=== PATIENT | male | born 1975 | race Two or more races ===

== ENCOUNTER 2024-08-21 10:57 | Emergency (ER) | payer MEDICAID, SELFPAY ==
--- NOTE | ~2024-08-21 | XR_ITS ---
EXAMINATION: XR CHEST CLINICAL INFORMATION: chest pain COMPARISON: None available. TECHNIQUE: Frontal view of the chest was obtained. FINDINGS: There is mild cardiac enlargement. Mediastinal and hilar contours appear normal. The lungs are clear bilaterally. No pneumothorax or effusion. No focal osseous or soft tissue abnormality. XR/XR chest 1V IMPRESSION: 1. Mild cardiac enlargement. 2. No active pulmonary disease. Electronically signed by: Jose Rojas MD 08/21/2024 11:41 AM EDT
--- NOTE | ~2024-08-21 | US_ITS ---
EXAMINATION: US TRIPLEX LOWER EXTREMITY, RIGHT CLINICAL INFORMATION: Right lower extremity edema and pain. COMPARISON: None available. TECHNIQUE: Color-flow triplex imaging with spectral analysis and compression Doppler were performed on the right lower extremity. FINDINGS: Respiratory variation, normal compression and augmented flow are noted throughout the right lower extremity. The visualized common femoral vein, superficial femoral vein, profunda femoral vein, popliteal vein and midcalf peroneal and posterior tibial venous segments show no evidence of deep venous thrombosis. There is no Marquez's cyst. US/US venous duplex LE RT IMPRESSION: No evidence of deep venous thrombosis involving the right lower extremity. Electronically signed by: Jose Rojas MD 08/21/2024 01:32 PM EDT
--- NOTE | 2024-08-21 10:59 | ECG_ITS ---
Test Reason : CP Blood Pressure : */* mmHG Vent. Rate : 99 BPM Atrial Rate : 99 BPM P-R Int : 176 ms QRS Dur : 106 ms QT Int : 396 ms P-R-T Axes : 53 35 224 degrees QTcB Int : 508 ms Normal sinus rhythm Possible Left atrial enlargement Left ventricular hypertrophy with repolarization abnormality ( Sokolow-Vazquez , [place] product , Romhilt-Jones ) Cannot rule out Inferior infarct , age undetermined Prolonged QT Abnormal ECG No previous ECGs available Referred By: Generic ED Physician Electronically Signed By: Umair Frank
[2024-08-21 11:11] VITALS: BP 177/114; PULSE 105; RESP 22; TEMP 36.4; O2SAT 96; BMI 36.0
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
[2024-08-21 12:40] LABS: MANUAL DIFF FLAG NO
[2024-08-21 12:42] LABS: Basophils Absolute Auto 0.1 X10*3/uL (0.0-0.2); Basophils Percent Auto 0.6 % (0-2); Eosinophils Absolute Auto 0.1 X10*3/uL (0.0-0.4); Eosinophils Percent Auto 1.2 % (0-4); Hematocrit 41.1 % (42.0-52.0); Imm Gran Abs Auto 0.04 X10*3/uL (0.00-0.03); Imm Gran Pct Auto 0.4 % (0.0-0.4); Lymphocytes Absolute Auto 1.3 X10*3/uL (1.2-4.9); Mean Corpuscular HGB Conc 34.1 g/dl (31.0-36.0); Mean Corpuscular Hemoglobin 26.5 pg (27.0-33.0); Mean Corpuscular Volume 77.7 fL (80.0-98.0); Monocytes Absolute Auto 0.7 X10*3/uL (0.1-1.2); Neutrophils Absolute Auto 7.8 x10*3/uL (2.0-8.3); Neutrophils Percent Auto 77.8 % (45-73); Platelet Count 279 X10*3/uL (160-400); Red Blood Count 5.29 X10*6/uL (4.60-5.80); Red Cell Distribution Width 15.6 % (11.0-16.0); White Blood Count 10.1 X10*3/uL (4.8-10.8)
[2024-08-21 12:47] LABS: INTERNATIONAL NORM RATIO 1.2 (0.9-1.1); Prothrombin Time 13.6 SEC (10.9-12.4)
[2024-08-21 12:49] LABS: D Dimer High Sensitivity 181 NG/ML
[2024-08-21 12:50] VITALS: BP 164/97
[2024-08-21 12:50] LABS: Partial Thromboplastin Time 27.8 SEC (26.0-36.8)
[2024-08-21] MEDS: Losartan Potassium 50 MG TABLET PO (12:50)
[2024-08-21] MEDS: Ketorolac Tromethamine 15 MG/ML VIAL IVPUSH (12:50)
[2024-08-21 12:57] LABS: Alanine Aminotransferase 57 U/L (0-40); Albumin Level 3.5 g/dL (3.5-5.0); Alkaline Phosphatase 66 U/L (39-117); Anion Gap 11 (12-20); Aspartate Amino Transferase 34 U/L (5-37); Bilirubin Total 0.6 mg/dL (0.0-1.0); Blood Urea Nitrogen 25 mg/dL (9-16); Calcium 8.7 mg/dL (8.4-10.2); Carbon Dioxide 25 mmol/L (22-29); Chloride 111 mmol/L (96-108); Creatinine Clr Calc Pharmacy 83.7; Estimated Glomerular Filt Rate 53; Glucose Random 123 mg/dL (60-115); Potassium 3.7 mmol/L (3.3-5.1); Sodium 143 mmol/L (135-145); Total Protein 5.7 g/dL (6.5-8.0)
[2024-08-21 13:02] LABS: B Type Natriuretic Peptide 1627 pg/mL (<100)
[2024-08-21 13:04] LABS: Troponin-I High Sensitivity 49.3 ng/L (<3.5-35.0)
[2024-08-21 13:42] LABS: Influenza A PCR NEGATIVE (Negative); Influenza B PCR NEGATIVE (Negative); Resp Syncy Virus RNA Qual PCR NEGATIVE (Negative); SARS COV2 PCR INHOUSE NEGATIVE (Negative)
[2024-08-21 14:09] VITALS: BP 160/87; PULSE 82; RESP 21; TEMP 36.6; O2SAT 97
[2024-08-21 16:26] LABS: Troponin-I High Sensitivity 44.3 ng/L (<3.5-35.0)
[2024-08-21 16:48] VITALS: PULSE 100; RESP 21
[2024-08-21 17:16] VITALS: BP 160/84; PULSE 100; RESP 21; TEMP 36.7; O2SAT 99
== END 2024-08-21 17:16 | disposition home or self-care (01) ==
PROVIDERS: Physician Assistant; Emergency Provider Emergency Medicine Emergency Medical Services
DX: R07.89 Other chest pain (principal); R60.0 Localized edema; F41.1 Generalized anxiety disorder; I10 Essential (primary) hypertension; I25.10 Atherosclerotic heart disease of native coronary artery without angina pectoris; Z03.818 Encounter for observation for suspected exposure to other biological agents ruled out; Z79.899 Other long term (current) drug therapy
CPT/HCPCS: 0241U; 36415; 71045; 80053; 83880; 84484; 85025; 85379; 85610; 85730; 93005; 93971; 96374; 99284; J1885

== ENCOUNTER → 2024-08-21 10:59 | Outpatient (BNV) | payer MEDICAID, SELFPAY | PROVIDERS: Emergency Provider Emergency Medicine Emergency Medical Services; Visit Provider Internal Medicine Cardiovascular Disease | DX: I51.7 Cardiomegaly (principal) | CPT/HCPCS: 93010 ==

== ENCOUNTER → 2024-08-21 11:14 | Outpatient (BNV) | payer MEDICAID, SELFPAY | PROVIDERS: Emergency Provider Emergency Medicine Emergency Medical Services; Visit Provider Radiology Diagnostic Radiology | DX: R22.41 Localized swelling, mass and lump, right lower limb (principal); R07.9 Chest pain, unspecified | CPT/HCPCS: 71045; 93971 ==

== ENCOUNTER 2024-08-28 23:06 | Inpatient (IN) | payer MEDICAID, SELFPAY ==
--- NOTE | ~2024-08-28 | XR_ITS ---
CLINICAL HISTORY: cp sob Exam: AP portable chest x-ray. Comparison: August 21, 2024. Findings: Lungs are less well inflated than on prior study. Cardiac silhouette is [id number] enlarged Interval increase in prominence of the perihilar and basilar lung markings with small right pleural effusion. Impression: Congestive heart failure versus diffuse bilateral pneumonitis with small right pleural effusion. This document has been electronically signed by: Yair Damon MD on 08/29/2024 00:30:54
[2024-08-28 23:36] VITALS: BP 165/102; PULSE 96; RESP 20; TEMP 36.4; O2SAT 95; BMI 34.2
--- NOTE | 2024-08-28 23:44 | ECG_ITS ---
Test Reason : sob Blood Pressure : */* mmHG Vent. Rate : 95 BPM Atrial Rate : 95 BPM P-R Int : 174 ms QRS Dur : 110 ms QT Int : 412 ms P-R-T Axes : 60 39 212 degrees QTcB Int : 517 ms Normal sinus rhythm Possible Left atrial enlargement Minimal voltage criteria for LVH, may be normal variant ( Dragan product ) Possible Inferior infarct (cited on or before 21-Aug-2024) T wave abnormality, consider lateral ischemia Prolonged QT Abnormal ECG When compared with ECG of 21-Aug-2024 11:02, No significant change was found Referred By: Generic ED Physician Electronically Signed By: LEWIS TURNER MD
[2024-08-29] VITALS (7 sets, daily range): BP systolic 138–166; BP diastolic 79–103; PULSE 81–89; RESP 16–22; TEMP 36.2–36.6; O2SAT 93–98; BMI 36.6
[2024-08-29 00:07] LABS: MANUAL DIFF FLAG NO
[2024-08-29 00:09] LABS: Basophils Absolute Auto 0.1 X10*3/uL (0.0-0.2); Basophils Percent Auto 0.8 % (0-2); Eosinophils Absolute Auto 0.2 X10*3/uL (0.0-0.4); Eosinophils Percent Auto 2.3 % (0-4); Hematocrit 42.1 % (42.0-52.0); Hemoglobin 14.2 g/dl (14.0-18.0); Imm Gran Abs Auto 0.06 X10*3/uL (0.00-0.03); Imm Gran Pct Auto 0.6 % (0.0-0.4); Lymphocytes Percent Auto 19.7 % (20-40); Mean Corpuscular HGB Conc 33.7 g/dl (31.0-36.0); Mean Corpuscular Hemoglobin 26.5 pg (27.0-33.0); Mean Corpuscular Volume 78.5 fL (80.0-98.0); Mean Platelet Volume 10.1 fL (9.4-12.4); Monocytes Absolute Auto 0.8 X10*3/uL (0.1-1.2); Monocytes Percent Auto 8.3 % (2-11); Neutrophils Absolute Auto 6.9 x10*3/uL (2.0-8.3); Neutrophils Percent Auto 68.3 % (45-73); Platelet Count 298 X10*3/uL (160-400); Red Blood Count 5.36 X10*6/uL (4.60-5.80); Red Cell Distribution Width 15.4 % (11.0-16.0); White Blood Count 10.2 X10*3/uL (4.8-10.8)
[2024-08-29 00:22] LABS: Alanine Aminotransferase 55 U/L (0-40); Albumin Level 3.4 g/dL (3.5-5.0); Alkaline Phosphatase 72 U/L (39-117); Anion Gap 14 (12-20); Aspartate Amino Transferase 42 U/L (5-37); Bilirubin Total 0.8 mg/dL (0.0-1.0); Blood Urea Nitrogen 36 mg/dL (9-16); Calcium 8.8 mg/dL (8.4-10.2); Carbon Dioxide 22 mmol/L (22-29); Chloride 111 mmol/L (96-108); Creatinine Clr Calc Pharmacy 68.9; Estimated Glomerular Filt Rate 44; Glucose Random 99 mg/dL (60-115); Potassium 3.7 mmol/L (3.3-5.1); Sodium 143 mmol/L (135-145); Total Protein 5.8 g/dL (6.5-8.0)
[2024-08-29 00:28] LABS: B Type Natriuretic Peptide 1934 pg/mL (<100); Troponin-I High Sensitivity 75.5 ng/L (<3.5-35.0)
[2024-08-29 01:00] LABS: Influenza A PCR NEGATIVE (Negative); Influenza B PCR NEGATIVE (Negative); Resp Syncy Virus RNA Qual PCR NEGATIVE (Negative); SARS COV2 PCR INHOUSE NEGATIVE (Negative)
--- NOTE | 2024-08-29 02:19 | ED_ITS ---
HPI - SOB/Dyspnea General Chief Complaint: Dyspnea Stated Complaint: SOB Time Seen by Provider: 08/29/24 01:31 Source: patient Mode of arrival: ambulatory Limitations: no limitations History of Present Illness ED Provider: HPI Narrative: 49-year-old male with a history of coronary artery disease /multiple myocardial infarctions, hypertension, peripheral edema came from [place] for increased shortness a breath and increased leg swelling, was seen here 08/21/2024 and prescribed furosemide which he took yesterday for the first-time as had insurance issues, still waiting to be seen by PCP comes here for increased shortness a breath even on mild exertion denies any chest pain or palpitation Related Data Previous Rx's ?Medication ?Instructions ?Recorded furosemide 40 mg tablet (Lasix) 40 mg PO DAILY #14 tabs 08/21/24 hydroxyzine HCl 25 mg tablet 25 mg PO TID PRN anxiety #30 tabs 08/21/24 losartan 50 mg-hydrochlorothiazide 1 tab PO DAILY 90 days #90 tabs 08/21/24 12.5 mg tablet potassium chloride 20 mEq 20 meq PO DAILY 30 days #30 tabs 08/21/24 tablet,extended release(part/cryst) Allergies Allergy/AdvReac Type Severity Reaction Status Date / Time No Known Allergies Allergy Verified 08/28/24 23:44 Review of Systems 2 Review of Systems: Yes all other systems are reviewed and are negative [facility] Past Medical History Medical History Leg edema Coronary artery disease Hypertension Social History Social History Advance Directives: No Advance Directives Information Provided: Yes Do you have a plan to hurt others: No Plan Physical Exam 2 Vital Signs: Vital Signs: Last Vital Signs Temp 97.9 F 08/29/24 02:37 Pulse 83 08/29/24 03:55 Resp 16 08/29/24 02:37 BP 156/100 H 08/29/24 03:55 Pulse Ox 96 08/29/24 02:37 O2 Del Method Room Air 08/29/24 02:37 BMI result Body Mass Index 34.2 Appearance: Alert. Oriented X3. No acute distress. Eyes: PERRLA, No Nystagmus ENT: Pharynx normal. Oral Mucosa moist Neck: Normal inspection. Neck supple. CVS: Normal heart rate and rhythm. Pulses normal. Respiratory: No respiratory distress. Equal air entry bilateral, no wheezing/rales/rhonchi few crackles at the bases Abdomen: Soft and nontender. Bowel sounds are present, no mass palpable, no CVA tenderness Skin: Skin warm and dry. Normal skin color. Normal skin turgor. Extremities: 3+ lower extremity edema. No calf tenderness Neuro: Oriented X 3. No motor deficit. No sensory deficit.No cerebellar signs , cranial nerves II-XII intact Medications Administered Generic Name Dose Route Start Last Admin Trade Name Freq PRN Reason Stop Dose Admin Acetaminophen 650 mg 08/29/24 03:31 08/29/24 05:30 Acetaminophen 325 Mg Tablet PO 650 mg Q6H PRN Administration Pain, Mild 1-3,fever,headache Discontinued Medications Generic Name Dose Route Start Last Admin Trade Name Freq PRN Reason Stop Dose Admin Aspirin 325 mg 08/29/24 03:34 08/29/24 03:54 Aspirin 325 Mg Tablet PO 08/29/24 03:35 325 mg ONCE ONE Administration Enoxaparin Sodium 110 mg 08/29/24 03:34 08/29/24 05:27 Enoxaparin Sodium 120 Mg/0.8 Ml Syringe SUBCUT 08/29/24 03:35 110 mg ONCE ONE Administration Furosemide 40 mg 08/29/24 02:22 08/29/24 02:52 Furosemide 40 Mg/4 Ml Vial IVPUSH 08/29/24 02:23 40 mg ONCE ONE Administration Protocol Nitroglycerin 1 inch 08/29/24 02:54 08/29/24 03:55 Nitroglycerin 2 % Oint 1 Gm Packet TRANSDERMA 08/29/24 02:55 1 inch ONCE ONE Administration Medical Decision Making Medical Decision Making [facility] Narrative: Patient with coronary artery disease with CHF noncompliant with the medication does not have any PCP at comes here 2nd time for increased shortness a breath will admit patient for further evaluation to be seen by pbx repairer Differential Diagnosis Differential Diagnoses: The differential diagnosis associated with the presentation includes CHF exacerbation/ACS/JAMIE Admission/Observation Consideration of admission/observation: Escalation of care including admission/observation considered Consult Healthcare Provider Management of the patient was discussed with: Hospitalist Lab Data [facility] Lab Attestation statement: I reviewed the patient's lab results. 08/29/24 05:08 08/28/24 23:58 Labs: Lab Results 08/28/24 08/29/24 Range/Units 23:58 02:59 WBC 10.2 (4.8-10.8) X10*3/uL RBC 5.36 (4.60-5.80) X10*6/uL Hgb 14.2 (14.0-18.0) g/dl Hct 42.1 (42.0-52.0) % MCV 78.5 L (80.0-98.0) fL MCH 26.5 L (27.0-33.0) pg MCHC 33.7 (31.0-36.0) g/dl RDW 15.4 (11.0-16.0) % Plt Count 298 (160-400) X10*3/uL MPV 10.1 (9.4-12.4) fL Immature Gran % (Auto) 0.6 H (0.0-0.4) % Neut % (Auto) 68.3 (45-73) % Lymph % (Auto) 19.7 L (20-40) % Warrick % (Auto) 8.3 (2-11) % Eos % (Auto) 2.3 (0-4) % Baso % (Auto) 0.8 (0-2) % Lymph # (Auto) 2.0 (1.2-4.9) X10*3/uL Warrick # (Auto) 0.8 (0.1-1.2) X10*3/uL Eos # (Auto) 0.2 (0.0-0.4) X10*3/uL Baso # (Auto) 0.1 (0.0-0.2) X10*3/uL Abs Immat Gran (auto) 0.06 H (0.00-0.03) X10*3/uL Absolute Neuts (auto) 6.9 (2.0-8.3) x10*3/uL Absolute Nucleated RBC 0.000 (0.0-0.012) X10*3/uL Nucleated RBC % (auto) 0.0 (0.0-0.2) /100WBC Sodium 143 (135-145) mmol/L Potassium 3.7 (3.3-5.1) mmol/L Chloride 111 H (96-108) mmol/L Carbon Dioxide 22 (22-29) mmol/L Anion Gap 14 (12-20) BUN 36 H (9-16) mg/dL Creatinine 1.68 H (0.5-1.4) mg/dL Estim Creat Clear Calc 68.9 Estimated GFR 44 Random Glucose 99 (60-115) mg/dL Calcium 8.8 (8.4-10.2) mg/dL Total Bilirubin 0.8 (0.0-1.0) mg/dL AST 42 H (5-37) U/L ALT 55 H (0-40) U/L Alkaline Phosphatase 72 (39-117) U/L Troponin I High Sens 75.5 H D 68.4 H (<3.5-35.0) ng/L B-Natriuretic Peptide 1934 H (<100) pg/mL Total Protein 5.8 L (6.5-8.0) g/dL Albumin 3.4 L (3.5-5.0) g/dL Influenza Type A (PCR) NEGATIVE (Negative) Influenza Type B (PCR) NEGATIVE (Negative) RSV RNA Qual (PCR) NEGATIVE (Negative) SARS-CoV-2 RNA (RT-PCR) NEGATIVE (Negative) Independent Interpretation I performed an independent interpretation of an: EKG Interpretation: Normal sinus rhythm heart rate 95 beats per minute LVH prolonged QT say [address]-T changes no acute ischemia Radiology Impression Discussion of test interpretation with radiology: I have reviewed the radiologist's reading. Radiologist Impression: Impression: Congestive heart failure versus diffuse bilateral pneumonitis with small right pleural effusion. Discharge Plan Discharge Clinical Impression: Congestive heart failure, Coronary artery disease, Acute renal failure superimposed on chronic kidney disease Patient Disposition: Admitted As Inpatient
[2024-08-29] MEDS: Furosemide 40 MG/4 ML VIAL IVPUSH (02:52)
[2024-08-29 03:27] LABS: Troponin-I High Sensitivity 68.4 ng/L (<3.5-35.0)
--- NOTE | 2024-08-29 03:34 | P.HPHOSP_ITS ---
History of Present Illness Date of Service: 08/29/24 Chief Complaint: Dyspnea This is a 49-year-old male with pertinent history of hypertension, leg edema, coronary artery disease who presents to the emergency department for evaluation of chest pain and dyspnea. Patient states his symptoms have been ongoing for the last 3 days. He has been having chest pain which is worse with exertion and better with rest. Also has been having dyspnea which is worse with exertion and worse when lying flat. Has noticed lower extremity edema. Patient states he takes fluid pills in [place] but does not have any PCP and has not been on fluid pills for the last few days. He was seen in the ER on 08/21 and prescribed furosemide but he had not picked it up and had not been taking it. No history of CHF that he knows of. History obtained with the help of net programmer. No fever chills, palpitations, abdominal pain, changes in urinary or bowel habits. In the emergency department, chest x-ray concerning for congestive heart failure and BNP found to be elevated. Also found to have elevated troponin. Creatinine 1.68 Review of Systems 2 Constitutional: Constitutional: Reports fatigue, Reports malaise and Reports weakness Cardiovascular: Cardiovascular: Reports chest pain, Reports chest pain with activity, Reports leg edema, Reports dyspnea on exertion and Reports orthopnea Respiratory: Respiratory: Reports dyspnea on exertion Gastrointestinal: Gastrointestinal: Reports no additional gastrointestinal complaints Genitourinary: Genitourinary: Reports no additional male genitourinary complaints Neurologic: Reports weakness Endocrine: Endocrine: Reports fatigue [facility] Medical History Leg edema Coronary artery disease Hypertension Pertinent family history: No family history of early CAD Social History Advance Directives: No Advance Directives Information Provided: Yes Do you have a plan to hurt others: No Plan Meds Allergies Allergy/AdvReac Type Severity Reaction Status Date / Time No Known Allergies Allergy Verified 08/28/24 23:44 Physical Exam 2 Vital Signs and Narrative: Vital Signs: Last Vital Signs Temp 97.9 F 08/29/24 02:37 Pulse 81 08/29/24 02:37 Resp 16 08/29/24 02:37 BP 151/92 H 08/29/24 02:37 Pulse Ox 96 08/29/24 02:37 O2 Del Method Room Air 08/29/24 02:37 BMI result Body Mass Index 34.2 Middle-aged male lying in bed in mild distress Neck supple Regular rate and rhythm, S1-S2 heard Bilateral crackles appreciated Abdomen soft nontender, no guarding, no rigidity Patient is awake, alert and oriented to self, place, time and person ; no focal motor deficit Psych: Normal mood Bilateral pitting edema Results Labs 08/28/24 23:58 08/28/24 23:58 Labs: Laboratory Results - last 24 hr 08/28/24 23:58 MCV 78.5 L MCH 26.5 L MCHC 33.7 RDW 15.4 Plt Count 298 MPV 10.1 Immature Gran % (Auto) 0.6 H Neut % (Auto) 68.3 Lymph % (Auto) 19.7 L Hettinger % (Auto) 8.3 Eos % (Auto) 2.3 Baso % (Auto) 0.8 Lymph # (Auto) 2.0 [place]tinger # (Auto) 0.8 Eos # (Auto) 0.2 Baso # (Auto) 0.1 Abs Immat Gran (auto) 0.06 H Absolute Neuts (auto) 6.9 Absolute Nucleated RBC 0.000 Nucleated RBC % (auto) 0.0 Anion Gap 14 Estim Creat Clear Calc 68.9 Estimated GFR 44 Random Glucose 99 Calcium 8.8 Total Bilirubin 0.8 AST 42 H ALT 55 H Alkaline Phosphatase 72 B-Natriuretic Peptide 1934 H Total Protein 5.8 L Albumin 3.4 L Influenza Type A (PCR) NEGATIVE Influenza Type B (PCR) NEGATIVE RSV RNA Qual (PCR) NEGATIVE SARS-CoV-2 RNA (RT-PCR) NEGATIVE Assessment and Plan (1) Congestive heart failure: Status: Acute (2) Chest pain: Status: Acute Plan This is a 49-year-old male with pertinent history of hypertension, leg edema, coronary artery disease who presents to the emergency department for evaluation of chest pain and dyspnea. #. Acute decompensated congestive heart failure, unknown EF: Will admit patient with IV diuresis. Strict I's and O's. Low-salt diet. Obtaining transthoracic echocardiogram. Cardiology consulted. Patient is on ARB #. Chest pain and elevated troponin: Will admit patient with cardiac monitoring. Trend troponin. Giving aspirin and 1 dose of therapeutic Lovenox. Echo and cardiology as above. #. Elevated creatinine: Likely CKD. Unknown baseline. Monitor creatinine with IV diuresis. #. Hypertension: Continue home antihypertensives and optimize Med rec pending DVT prophylaxis: Lovenox Full code Admit as inpatient and will require two night minimum hospital stay for IV diuresis (as above), which is not possible in a lesser acute setting. Cardiology consult pending Quality Stroke Does the patient have a stroke diagnosis?: No VTE Prior VTE?: No VTE Risk Level:: Medical - moderate - high VTE Device Contraindication: Treatment Not Indicated VTE Drug Contraindication: N/A - Med Ordered
[2024-08-29] MEDS: Aspirin 325 MG TABLET PO (03:54)
[2024-08-29] MEDS: Nitroglycerin 2 % Oint 1 GM Packet 1 INCH TRANSDERMA (03:55)
[2024-08-29] MEDS: Enoxaparin Sodium 120 MG/0.8 ML SYRINGE 110 MG SUBCUT (05:27)
[2024-08-29] MEDS: Acetaminophen 325 MG TABLET 650 MG PO ×2 (05:30→15:45)
[2024-08-29 05:51] LABS: Glucose, Whole Blood 87 mg/dL (60-115)
[2024-08-29 06:33] LABS: Hematocrit 42.6 % (42.0-52.0); Mean Corpuscular HGB Conc 32.9 g/dl (31.0-36.0); Mean Corpuscular Hemoglobin 25.9 pg (27.0-33.0); Mean Corpuscular Volume 78.9 fL (80.0-98.0); Mean Platelet Volume 10.6 fL (9.4-12.4); Platelet Count 280 X10*3/uL (160-400); Red Cell Distribution Width 15.4 % (11.0-16.0); White Blood Count 9.4 X10*3/uL (4.8-10.8)
[2024-08-29 06:45] LABS: Anion Gap 12 (12-20); Blood Urea Nitrogen 34 mg/dL (9-16); Calcium 8.7 mg/dL (8.4-10.2); Carbon Dioxide 25 mmol/L (22-29); Chloride 108 mmol/L (96-108); Creatinine Clr Calc Pharmacy 83.8; Estimated Glomerular Filt Rate 55; Glucose Random 89 mg/dL (60-115); Potassium 3.2 mmol/L (3.3-5.1); Sodium 142 mmol/L (135-145)
[2024-08-29 06:49] LABS: Troponin-I High Sensitivity 63.7 ng/L (<3.5-35.0)
--- NOTE | 2024-08-29 07:00 | CA_ITS ---
Transthoracic Echocardiogram Patient (Last, First, Middle): Slava Morrell, Gender: Male Date of : 1975 Age: 49 Procedure Date: 08/29/2024 Procedure Type: Transthoracic Echocardiogram Location: ER Height: 180.34 cm Weight: 111.13 kg BSA: 2.30 m2 Heart Rate: bpm BP: 151 / 94 mmHg Environmental Science Professor: SB Referring MD: Héctor Velasquez MD Plastics Fitter: Nas Calderon MD Symptoms: CHF Study Quality: Adequate ECG Rhythm: Sinus Conclusions: - 1. Moderately dilated left ventricular with severely reduced LV ejection fraction of 25-30% with grade 2 diastolic dysfunction 2. Moderately reduced RV systolic function 3. Moderately dilated left atrium 4. Mild aortic regurgitation 5. Moderate to severe elevation of right ventricular systolic pressure with significantly elevated right atrial pressures 6. Mildly dilated ascending aorta at 3.8 cm 7. Small pericardial effusion Findings Left Ventricle Moderately increased left ventricular cavity size. There is mildly increased left ventricular wall thickness. The left ventricular systolic function is severely decreased. The visually estimated ejection fraction is between 25 30%. There is severe global hypokinesis. Spectral Doppler is indicative of a restrictive filling pattern. E/E prime ratio is >15, consistent with elevated filling pressures. Evidence suggests grade III (severe) diastolic dysfunction. Right Ventricle Moderately increased right ventricular cavity size. There is moderately decreased right ventricular systolic function. Atria The left atrium is moderately dilated. There is no evidence of interatrial shunt. The right atrium is mildly dilated. Aortic Valve Normal aortic valve structure and function. There is no aortic valve stenosis. There is mild aortic valve regurgitation. Mitral Valve There is mild anterior and posterior mitral leaflet thickening. There is trace mitral valve regurgitation. There is no mitral valve stenosis. Pulmonic Valve The pulmonic valve is likely normal. Tricuspid Valve Normal tricuspid valve structure. There is mild tricuspid valve regurgitation. Significantly elevated right atrial pressure. Moderate to severe pulmonary hypertension is present. Great Vessels The pulmonary artery was not well visualized. There is mild dilatation of the ascending aorta measuring 3.80 cm. Venous The inferior vena cava is severely dilated and collapses less than 50% with inspiration. Pericardium/Pleural There is a small circumferential pericardial effusion. Prior Study Comparison No prior study available for comparison. Measurements 2D Linear Measurements IVSd: 1.30 0.6-0.9/0.6-1.0 cm LVIDd: 6.47 3.9-5.3/4.2-5.9 cm LVIDd Index: 2.81 2.4-3.2/2.2-3.1 cm/m2 LVIDs: 5.96 2.0-3.6 cm LVPWd: 1.23 0.7-1.1 cm LA Diam: 5.00 2.7-3.8/3.0-4.0 cm LAIDs Index: 2.17 1.5-2.3 cm/m2 LV Mass: 476.49 67-162/88-224 g LV Mass Index: 207.17 43-95/49-115 g/m2 LVOT Diam: 2.50 3.0+(-)1.3 cm 2D Systolic Function EF 4C: 31.70 >55% EF 2C: 23.70 >55% EF BiP: 27.50 >55% Mitral Valve MV Pk E: 0.94 MV PK A: 0.34 MV Decel Time: 163.00 E/A: 2.70 E'Lateral: 6.73 E'Medial: 3.57 E/E' Med: 26.40 E/E' Lat: 14.00 PHT: 48.00 MVA PHT: 4.58 Decel Garland: 5.77 Aortic Valve AoV Pk Jourdan: 1.64 AoV Mn Jourdan: 1.19 AoV VTI: 0.29 AoV Pk Grad: 11.00 Aov Mn Grad: 6.00 SUJIT Cont.VTI: 2.74 AI Pk Jourdan: 4.86 AI Garland: 3.18 LVOT LVOT Pk Jourdan: 0.94 LVOT Mn Jourdan: 0.65 LVOT VTI: 0.16 LVOT Pk Grad: 4.00 LVOT Mn Grad: 2.00 LVOT Diam: 2.50 LVOT Area: 4.91 Diastolic Function MV Pk E: 0.94 MV Pk A: 0.34 E/A: 2.70 E'Medial: 3.57 E/E' Med: 26.40 E' Laterial: 6.73 E/E' Lat: 14.00 Right Ventricle TAPSE (mm): 13.50 TVS' Jourdan: 9.32 Tricuspid Valve TR Pk Jourdan: 3.42 TR Pk Grad: 47.00 RA Press: 15.00 RVSP: 62.00 Great Vessels Aorta Sinus of Valsalva: 3.20 2.0-3.5 cm Ao Asc: 3.80 2.1-3.4 cm Pulmonary Veins Pulm Vein S/D 0.50 Pulmonary Valve PV Pk Jourdan: 0.98 Peak PV Grad: 4.00 Updated in Other Vendor System with Status of Final Nas Calderon MD electronically signed on 08/29/2024 10:27:50 AM with status of Final
--- NOTE | 2024-08-29 10:39 | PHA.MEDREC ---
Pharmacy Consult ? Medication Reconciliation Pharmacy has completed the medication reconciliation. Spoke to patient via chief investment officer to confirm medication list. Per patient, yesterday 08/28/24 he picked up the medications that were prescribed after last visit on 08/21/24 and took the first dose yesterday. Dede called [facility] on [address] [facility] in [place] and were able to confirm with them that patient did nut picker the meds.
[2024-08-29] MEDS: Furosemide 200 MG in 0.9 % Sodium Chloride 80 ML IVCONT (10:41)
--- NOTE | 2024-08-29 11:09 | P.CONCA_ITS ---
History of Present Illness History of Present Illness Date of Service: 08/29/24 Requesting physician: Kendra Chavez Consult reason: congestive heart failure Chief complaint: Dyspnea Narrative: I was consulted to see Slava in cardiology consultation today for decompensated congestive heart failure along with elevated creatinine and chest pain with minimally elevated troponins. History was obtained with help of weatherization coordinator and despite the weatherization coordinator patient is not a very good historian. Patient says that he has prior coronary artery disease with multiple myocardial infarction he says about total of 6 times. He had a stent placed in [place] 8 years ago, exact artery unknown. Since then he had had multiple events and last admitted in [place] in March last year very had a cardiac catheterization as per him and was told that he had coronary vaso spasm. Patient then came to [facility] in April and has not been taking his medication as he said there was no prescribe for him to give his medications. He has been without medications. Over the last month or so he has had increasing shortness of breath and increasing leg edema. He said he has gained about 50 lb. He was on diuretic while in [place], says Lasix, dose unknown. He has not been that for the last 4 months. He was also on losartan but currently not getting it. He was noted to be hypertensive and came in with heart failure with BNP of 1934 with minimally elevated troponins which are predominantly flat with no significant ischemic EKG changes. He did come in with significantly elevated blood pressure in his complain of chest pressure. He also has headache currently. But he has been prescribed nitro paste since yesterday. He has been given Lasix but no intake and output chart has been chart it. Says his shortness of breath has improved marginally. Review of Systems 2 Constitutional: Constitutional: Reports weight gain Eyes: Eyes: Reports no additional eye complaints Cardiovascular: Cardiovascular: Reports Abdominal Distension, Reports chest pain at rest, Denies rapid heart rate, Reports leg edema, Denies lightheadedness, Denies Loss of Consciousness, Denies palpitations, Reports dyspnea on exertion and Reports orthopnea Respiratory: Respiratory: Reports no additional respiratory complaints and Reports dyspnea on exertion Gastrointestinal: Gastrointestinal: Reports no additional gastrointestinal complaints Genitourinary: Genitourinary: Reports no additional male genitourinary complaints Musculoskeletal: Musculoskeletal: Reports no additional musculoskeletal complaints Integumentary/Breasts: Skin/Breast: Reports system reviewed and no additional complaints, except as docu Neurologic: Reports system reviewed and no additional complaints, except as documented Psychiatric: Psychiatric: Reports no additional psychiatric complaints Endocrine: Endocrine: Denies palpitations PMFSH Past Medical History Medical History Leg edema Coronary artery disease Hypertension Social History Social History Household Members: Significant Other and Children Housing: House Patient Tobacco Use Status: Never used Tobacco Substance Use Type: Marijuana Meds Allergies Allergy/AdvReac Type Severity Reaction Status Date / Time No Known Allergies Allergy Verified 08/28/24 23:44 Active Medications: Current Medications Acetaminophen (Acetaminophen 325 Mg Tablet) 650 mg PO Q6H PRN PRN Reason: Pain, Mild 1-3,fever,headache Last Admin: 08/29/24 05:30 Dose: 650 mg Calcium Carbonate (Calcium Carbonate 750 Mg Tab.Chew) 750 mg PO Q4H PRN PRN Reason: Heartburn Furosemide 200 mg/ Sodium (Chloride) 100 mls @ 2.5 mls/hr IVCONT .Q24H [facility] Last Admin: 08/29/24 10:41 Dose: 5 mg/hr, 2.5 mls/hr Magnesium Hydroxide (Milk Of Magnesia 30 Ml Oral.Susp) 30 ml PO DAILY PRN PRN Reason: Constipation Melatonin (Melatonin 3 Mg Tablet) 6 mg PO BEDTIME PRN PRN Reason: Insomnia Nitroglycerin (Nitroglycerin 0.4 Mg Tab.Subl) 0.4 mg SUBLINGUAL Q5MX3 PRN PRN Reason: Chest Pain Ondansetron HCl (Ondansetron Hcl 4 Mg/2 Ml Vial) 4 mg IVPUSH Q8H PRN PRN Reason: Nausea and Vomiting Sodium Chloride (0.9 % Sodium Chloride Flush 3 Ml Syringe) 3 ml IVFLUSH QSHIFT [facility] Last Admin: 08/29/24 10:45 Dose: Not Given Physical Exam 2 Vital Signs: Vital Signs: Last Vital Signs Temp 97.2 F 08/29/24 10:29 Pulse 84 08/29/24 10:29 Resp 18 08/29/24 10:29 BP 154/98 H 08/29/24 10:29 Pulse Ox 97 08/29/24 10:29 O2 Del Method Room Air 08/29/24 10:29 BMI result Body Mass Index 36.6 Const: General: cooperative, comfortable, alert and awake Nutritional Appearance: obese Orientation/consciousness: patient oriented x3 L imitations: no limitations HEENT: Head: Yes normocephalic and Yes atraumatic Neck: Neck: Yes trachea midline, Yes supple and Yes JVD Resp: Effort & Inspection: normal respiratory effort Auscultation: crackles Cardio: Jugular venous distension: JVD Palpation: abnormal PMI displaced PMI Rate: regular rate Rhythm: regular rhythm Heart sounds: S1 normal heart sound present, S2 normal heart sound present, no click, Gallop heart sound present S3 gallop, no murmurs and no rubs GI: Auscultation: normal bowel sounds Skin: General skin exam: no rashes or lesions noted Neuro: General: patient oriented x3 and no focal motor deficits Extrem: General: No clubbing, No cyanosis and Yes edema Psych: Appearance: grossly normal Objective Labs and Meds 08/29/24 05:08 08/29/24 05:08 Lab results: Laboratory Results - last 24 hr 08/28/24 08/29/24 08/29/24 23:58 02:59 05:08 WBC 10.2 9.4 RBC 5.36 5.40 Hgb 14.2 14.0 Hct 42.1 42.6 MCV 78.5 L 78.9 L MCH 26.5 L 25.9 L MCHC 33.7 32.9 RDW 15.4 15.4 Plt Count 298 280 MPV 10.1 10.6 Immature Gran % (Auto) 0.6 H Neut % (Auto) 68.3 Lymph % (Auto) 19.7 L [place] % (Auto) 8.3 Eos % (Auto) 2.3 Baso % (Auto) 0.8 Lymph # (Auto) 2.0 [place] # (Auto) 0.8 Eos # (Auto) 0.2 Baso # (Auto) 0.1 Abs Immat Gran (auto) 0.06 H Absolute Neuts (auto) 6.9 Absolute Nucleated RBC 0.000 0.000 Nucleated RBC % (auto) 0.0 0.0 Sodium 143 142 Potassium 3.7 3.2 L Chloride 111 H 108 Carbon Dioxide 22 25 Anion Gap 14 12 BUN 36 H 34 H Creatinine 1.68 H 1.38 Estim Creat Clear Calc 68.9 83.8 Estimated GFR 44 55 POC Glucose Random Glucose 99 89 Calcium 8.8 8.7 Total Bilirubin 0.8 AST 42 H ALT 55 H Alkaline Phosphatase 72 Troponin I High Sens 75.5 H D 68.4 H 63.7 H B-Natriuretic Peptide 1934 H Total Protein 5.8 L Albumin 3.4 L Influenza Type A (PCR) NEGATIVE Influenza Type B (PCR) NEGATIVE RSV RNA Qual (PCR) NEGATIVE SARS-CoV-2 RNA (RT-PCR) NEGATIVE 08/29/24 05:46 WBC RBC Hgb Hct MCV MCH MCHC RDW Plt Count MPV Immature Gran % (Auto) Neut % (Auto) Lymph % (Auto) [place] % (Auto) Eos % (Auto) Baso % (Auto) Lymph # (Auto) [place] # (Auto) Eos # (Auto) Baso # (Auto) Abs Immat Gran (auto) Absolute Neuts (auto) Absolute Nucleated RBC Nucleated RBC % (auto) Sodium Potassium Chloride Carbon Dioxide Anion Gap BUN Creatinine Estim Creat Clear Calc Estimated GFR POC Glucose 87 Random Glucose Calcium Total Bilirubin AST ALT Alkaline Phosphatase Troponin I High Sens B-Natriuretic Peptide Total Protein Albumin Influenza Type A (PCR) Influenza Type B (PCR) RSV RNA Qual (PCR) SARS-CoV-2 RNA (RT-PCR) Conclusions: - 1. Moderately dilated left ventricular with severely reduced LV ejection fraction of 25-30% with grade 2 diastolic dysfunction 2. Moderately reduced RV systolic function 3. Moderately dilated left atrium 4. Mild aortic regurgitation 5. Moderate to severe elevation of right ventricular systolic pressure with significantly elevated right atrial pressures 6. Mildly dilated ascending aorta at 3.8 cm 7. Small pericardial effusion EKG shows normal sinus rhythm with left atrial enlargement with voltage criteria for LVH with diffuse T-wave changes which could represent ischemia versus repolarization Assessment and Plan (1) Heart failure, systolic, with acute decompensation: Status: Acute Patient presents with classic signs of decompensated congestive heart failure and noted to have severe LV systolic dysfunction which is known from before. 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 His troponins are flat most likely from subendocardial ischemia and myocardial strain in the setting of hypertension as well. Chest pain syndrome also probably related to significantly elevated left ventricular end-diastolic pressure and myocardial strain. I would start him on more aggressive diuresis add Lasix 5 mg per hour drip. Strict intake and output chart needs to be pursued. Also start him on therapy with Entresto 24-26 mg b.i.d.. Continue nitro paste for preload reduction and blood pressure management for now. If kidney functions are doing okay will pursue addition of spironolactone therapy. Can add Jardiance 10 mg to his regimen. Hold off on beta-maylin therapy once he has been diuresed well and appears to be more euvolemic at which time will add beta-maylin therapy with carvedilol. Management of heart failure was discussed in details. Will eventually pursue ischemic workup but can be done as an outpatient. Findings discussed with Dr. Chavez Spent greater than 40 minutes in managing his complex care. Procedures Date of Service Date of Service: 08/29/24
--- NOTE | 2024-08-29 11:44 | MHC.CM.PN ---
Pt. is SSO, he lives with his family. He does not have a PCP, brochure given. He does not use DME, is functionally independent. He can arrange a ride home at [place]. DCP: home, self care. CM to follow for DC needs.
--- NOTE | 2024-08-29 14:56 | HO.PM.IMPN ---
Subjective Subjective Date of Service: 08/29/24 Interval History: chf Review of Systems sob seems somewhat improving has leg edema Physical Exam Vital Signs: Vital Signs: Last Vital Signs Temp 97.2 F 08/29/24 10:29 Pulse 84 08/29/24 10:29 Resp 18 08/29/24 10:29 BP 154/98 H 08/29/24 10:29 Pulse Ox 97 08/29/24 10:29 O2 Del Method Room Air 08/29/24 10:29 BMI result Body Mass Index 36.6 Objective Data Active Medications Acetaminophen (Acetaminophen 325 Mg Tablet) 650 mg PO Q6H PRN PRN Reason: Pain, Mild 1-3,fever,headache Last Admin: 08/29/24 05:30 Dose: 650 mg Documented By: TROY Calcium Carbonate (Calcium Carbonate 750 Mg Tab.Chew) 750 mg PO Q4H PRN PRN Reason: Heartburn Furosemide 200 mg/ Sodium (Chloride) 100 mls @ 2.5 mls/hr IVCONT .Q24H [facility] Last Admin: 08/29/24 10:41 Dose: 5 mg/hr, 2.5 mls/hr Documented By: JEAN Magnesium Hydroxide (Milk Of Magnesia 30 Ml Oral.Susp) 30 ml PO DAILY PRN PRN Reason: Constipation Melatonin (Melatonin 3 Mg Tablet) 6 mg PO BEDTIME PRN PRN Reason: Insomnia Nitroglycerin (Nitroglycerin 0.4 Mg Tab.Subl) 0.4 mg SUBLINGUAL Q5MX3 PRN PRN Reason: Chest Pain Ondansetron HCl (Ondansetron Hcl 4 Mg/2 Ml Vial) 4 mg IVPUSH Q8H PRN PRN Reason: Nausea and Vomiting Sodium Chloride (0.9 % Sodium Chloride Flush 3 Ml Syringe) 3 ml IVFLUSH QSHIFT [facility] Last Admin: 08/29/24 10:45 Dose: Not Given Documented By: JEAN Non-Admin Reason: IV Running Labs 08/29/24 05:08 08/29/24 05:08 Labs: Laboratory Results - last 24 hr 08/28/24 08/29/24 08/29/24 23:58 05:08 05:46 MCV 78.5 L 78.9 L MCH 26.5 L 25.9 L MCHC 33.7 32.9 RDW 15.4 15.4 Plt Count 298 280 MPV 10.1 10.6 Immature Gran % (Auto) 0.6 H Neut % (Auto) 68.3 Lymph % (Auto) 19.7 L [place] % (Auto) 8.3 Eos % (Auto) 2.3 Baso % (Auto) 0.8 Lymph # (Auto) 2.0 [place] # (Auto) 0.8 Eos # (Auto) 0.2 Baso # (Auto) 0.1 Abs Immat Gran (auto) 0.06 H Absolute Neuts (auto) 6.9 Absolute Nucleated RBC 0.000 0.000 Nucleated RBC % (auto) 0.0 0.0 Anion Gap 14 12 Estim Creat Clear Calc 68.9 83.8 Estimated GFR 44 55 POC Glucose 87 Random Glucose 99 89 Calcium 8.8 8.7 Total Bilirubin 0.8 AST 42 H ALT 55 H Alkaline Phosphatase 72 B-Natriuretic Peptide 1934 H Total Protein 5.8 L Albumin 3.4 L Influenza Type A (PCR) NEGATIVE Influenza Type B (PCR) NEGATIVE RSV RNA Qual (PCR) NEGATIVE SARS-CoV-2 RNA (RT-PCR) NEGATIVE Quality Stroke Does the patient have a stroke diagnosis?: No VTE Prior VTE?: No VTE Risk Level:: Medical - moderate - high VTE Device Contraindication: Treatment Not Indicated VTE Drug Contraindication: N/A - Med Ordered
--- NOTE | 2024-08-29 15:00 | PM.EVENT ---
Event Note Date of Service: 08/29/24 Event Note: This patient is seen and examined -has sob somewhat improving/leg edema . Physical exam and assessment and plan coordinated h&P Agree with the plan in addition: 49-year-old male with pertinent history of hypertension, leg edema, coronary artery disease who presents to the emergency department for evaluation of chest pain and dyspnea. Acute decompensated congestive heart failure, unknown EF: Strict I's and O's. daily weights chest pain resolved ,trop flat Low-salt diet. transthoracic echocardiogram. Cardiology consulted-IV diuresislasix drip, entresto,juadiance,may need to add sprinolactone. Elevated creatinine: Likely CKD. Unknown baseline. Monitor creatinine with IV diuresis. Hypertension: Continue home antihypertensives as above : continue lasix,entresto ,nitro. Time Spent With Patient Time: Total time managing care of this patient today ____ minutes.
[2024-08-29] MEDS: Potassium Chloride ER 20 MEQ TAB.ER.PRT 40 MEQ PO (15:45)
[2024-08-29] MEDS: hydrOXYzine HCL 25 MG TABLET PO (16:36)
[2024-08-29] MEDS: Magnesium Oxide 400 MG TABLET PO (16:36)
[2024-08-29] MEDS: Sacubitril/Valsartan 24/26 1 TAB TABLET PO (16:36)
[2024-08-30] VITALS (7 sets, daily range): BP systolic 156–176; BP diastolic 88–108; PULSE 82–91; RESP 18–19; TEMP 36.2–36.3; O2SAT 96–99
[2024-08-30] MEDS: Acetaminophen 325 MG TABLET 650 MG PO (06:19)
[2024-08-30] MEDS: Sacubitril/Valsartan 24/26 1 TAB TABLET PO (07:43)
[2024-08-30] MEDS: Aspirin Enteric Coated 81 MG TABLET.DR PO (07:43)
[2024-08-30] MEDS: Magnesium Oxide 400 MG TABLET PO ×2 (07:43→16:26)
[2024-08-30] MEDS: Empagliflozin 10 MG TABLET PO (07:43)
[2024-08-30] MEDS: 0.9 % Sodium Chloride Flush 3 ML SYRINGE IVFLUSH (07:44)
[2024-08-30] MEDS: Potassium Chloride ER 20 MEQ TAB.ER.PRT PO (07:44)
[2024-08-30 08:21] LABS: Anion Gap 14 (12-20); Blood Urea Nitrogen 24 mg/dL (9-16); Carbon Dioxide 32 mmol/L (22-29); Chloride 103 mmol/L (96-108); Creatinine Clr Calc Pharmacy 100.7; Estimated Glomerular Filt Rate > 60; Glucose Random 98 mg/dL (60-115); Potassium 3.7 mmol/L (3.3-5.1); Sodium 145 mmol/L (135-145)
[2024-08-30 08:30] LABS: B Type Natriuretic Peptide 1332 pg/mL (<100)
--- NOTE | 2024-08-30 10:44 | PM.PNCARD ---
Subjective Subjective Date of Service: 08/30/24 Principal diagnosis: Decompensated congestive heart failure. Interval history: Patient says he has been diuresing well and feels better although no output chart has been unfortunately maintained. Patient was currently on Lasix drip. Echocardiogram shows severe LV systolic dysfunction. Patient denies any chest pain today. Blood pressure remains elevated. Review of Systems Constitutional: Reports no additional constitutional complaints Cardiovascular: Denies chest pain, Denies rapid heart rate, Reports leg edema, Denies lightheadedness, Denies Loss of Consciousness, Denies palpitations and Reports dyspnea on exertion Respiratory: Reports no additional respiratory complaints and Reports dyspnea on exertion Genitourinary: Reports no additional male genitourinary complaints Psychiatric: Reports no additional psychiatric complaints Endocrine: Denies palpitations Physical Exam Vital Signs: Last Vital Signs Temp 97.3 F 08/30/24 07:03 Pulse 86 08/30/24 07:03 Resp 18 08/30/24 07:03 BP 160/108 H 08/30/24 07:43 Pulse Ox 98 08/30/24 07:03 O2 Del Method Room Air 08/30/24 07:03 BMI result Body Mass Index 36.6 Const General: cooperative, comfortable, alert and awake Nutritional Appearance: obese Orientation/consciousness: patient oriented x3 Limitations: no limitations HEENT Head: Yes normocephalic and Yes atraumatic Neck Neck: Yes trachea midline, Yes supple and Yes JVD Resp Effort & Inspection: normal respiratory effort Auscultation: crackles Cardio Jugular venous distension: JVD Palpation: abnormal PMI displaced PMI Rate: regular rate Rhythm: regular rhythm Heart sounds: S1 normal heart sound present, S2 normal heart sound present, no click, Gallop heart sound present S3 gallop, no murmurs and no rubs GI Auscultation: normal bowel sounds Skin General skin exam: no rashes or lesions noted Neuro General: patient oriented x3 and no focal motor deficits Extrem General: No clubbing, No cyanosis and Yes edema Psych Appearance: grossly normal Objective Labs and Meds 08/29/24 05:08 08/30/24 06:59 Lab results: Laboratory Results - last 24 hr 08/30/24 06:59 Sodium 145 Potassium 3.7 Chloride 103 Carbon Dioxide 32 H Anion Gap 14 BUN 24 H Creatinine 1.19 Estim Creat Clear Calc 100.7 Estimated GFR > 60 Random Glucose 98 Calcium 9.0 B-Natriuretic Peptide 1332 H Progress Note: A&P Assessment and plan (1) Heart failure, systolic, with acute decompensation: Status: Acute Assessment and Plan: Acute decompensated congestive heart failure with improved creatinine with diuresis. Continue IV diuresis. Appears to be significantly fluid overloaded. Still hypertensive. Increase Entresto to 49-51 mg b.i.d. for better control blood pressure and as vaso dilator as well as heart failure therapy. Add spironolactone 25 mg to his regimen. Continue IV Lasix drip. Strict intake and output chart needs to be pursued. Continue to monitor renal function electrolytes. Hold off on beta-maylin therapy for today till he is better optimized from heart failure perspective. Will continue to follow with you Time Spent With Patient Time: Total time managing care of this patient today ____ minutes. Progress Note: Quality Stroke Does the patient have a stroke diagnosis?: No Procedures Date of Service Date of Service: 08/30/24
[2024-08-30] MEDS: Furosemide 200 MG in 0.9 % Sodium Chloride 80 ML IVCONT (10:46)
[2024-08-30] MEDS: Enoxaparin Sodium 40 MG/0.4 ML SYRINGE SUBCUT (16:26)
--- NOTE | 2024-08-30 16:28 | P.PNIM_ITS ---
Subjective Subjective Date of Service: 08/30/24 Interval History: Acute decompensated congestive heart failure, unknown EF Review of Systems sob seems somewhat improving denies any chest pain Review of Systems: Yes all other systems are reviewed and are negative Physical Exam 2 Vital Signs: Vital Signs: Last Vital Signs Temp 97.4 F 08/30/24 15:28 Pulse 86 08/30/24 15:28 Resp 18 08/30/24 15:28 BP 156/88 H 08/30/24 15:28 Pulse Ox 99 08/30/24 15:28 O2 Del Method Room Air 08/30/24 15:28 BMI result Body Mass Index 36.6 Appearance: Alert.? Oriented X3.? cvs: rrr, [id number] . res:air entry dimnshed ,few scattered rales. abd: no rebound or guarding ,nt, bs present. ext pulses present , no cyanosis . neuro: axo3 , nonfocal. Objective Data Active Medications Acetaminophen (Acetaminophen 325 Mg Tablet) 650 mg PO Q6H PRN PRN Reason: Pain, Mild 1-3,fever,headache Last Admin: 08/30/24 06:19 Dose: 650 mg Documented By: ANTOINC Aspirin (Aspirin Enteric Coated 81 Mg Tablet.Dr) 81 mg PO DAILY [facility] Last Admin: 08/30/24 07:43 Dose: 81 mg Documented By: VASILE Calcium Carbonate (Calcium Carbonate 750 Mg Tab.Chew) 750 mg PO Q4H PRN PRN Reason: Heartburn Empagliflozin (Empagliflozin 10 Mg Tablet) 10 mg PO DAILY [facility] Last Admin: 08/30/24 07:43 Dose: 10 mg Documented By: VASILE Enoxaparin Sodium (Enoxaparin Sodium 40 Mg/0.4 Ml Syringe) 40 mg SUBCUT Q24H [facility] Hydroxyzine HCl (Hydroxyzine Hcl 25 Mg Tablet) 25 mg PO TID PRN PRN Reason: anxiety Last Admin: 08/29/24 16:36 Dose: 25 mg Documented By: DOBROB Furosemide 200 mg/ Sodium (Chloride) 100 mls @ 2.5 mls/hr IVCONT .Q24H [facility] Last Admin: 08/30/24 10:46 Dose: 5 mg/hr, 2.5 mls/hr Documented By: VASILE Magnesium Hydroxide (Milk Of Magnesia 30 Ml Oral.Susp) 30 ml PO DAILY PRN PRN Reason: Constipation Magnesium Oxide (Magnesium Oxide 400 Mg Tablet) [facility] Last Admin: 08/30/24 07:43 Dose: 400 mg Documented By: VASILE Melatonin (Melatonin 3 Mg Tablet) 6 mg PO BEDTIME PRN PRN Reason: Insomnia Nitroglycerin (Nitroglycerin 0.4 Mg Tab.Subl) 0.4 mg SUBLINGUAL Q5MX3 PRN PRN Reason: Chest Pain Ondansetron HCl (Ondansetron Hcl 4 Mg/2 Ml Vial) 4 mg IVPUSH Q8H PRN PRN Reason: Nausea and Vomiting Potassium Chloride (Potassium Chloride Er 20 Meq Tab.Er.Prt) 20 meq PO DAILY [facility] Last Admin: 08/30/24 07:44 Dose: 20 meq Documented By: VASILE Sacubitril/Valsartan (Sacubitril/Valsartan 1 Tab Tablet) 1 tab PO BID [facility]; Protocol Last Admin: 08/30/24 07:43 Dose: 1 tab Documented By: VASILE Sodium Chloride (0.9 % Sodium Chloride Flush 3 Ml Syringe) 3 ml IVFLUSH QSHIFT [facility] Last Admin: 08/30/24 07:44 Dose: 3 ml Documented By: VASILE Labs 08/29/24 05:08 08/30/24 06:59 Labs: Laboratory Results - last 24 hr 08/30/24 06:59 Anion Gap 14 Estim Creat Clear Calc 100.7 Estimated GFR > 60 Random Glucose 98 Calcium 9.0 B-Natriuretic Peptide 1332 H Assessment and Plan (1) Heart failure, systolic, with acute decompensation: Status: Acute Assessment and Plan: 49-year-old male with pertinent history of hypertension, leg edema, coronary artery disease who presents to the emergency department for evaluation of chest pain and dyspnea. Acute decompensated congestive heart failure, unknown EF: Strict I's and O's. daily weights chest pain resolved ,trop flat Low-salt diet. transthoracic echocardiogram. Cardiology consulted-IV diuresislasix drip, entresto,juadiance,may need to add sprinolactone. Hypertension: Continue home antihypertensives and optimize. dvt prophylax: s/c lovenox. Ongoing need of stay-Acute decompensated congestive heart failure, unknown EF: Need IV Lasix, I&O monitoring. Quality Stroke Does the patient have a stroke diagnosis?: No VTE Prior VTE?: No VTE Risk Level:: Medical - moderate - high VTE Device Contraindication: Treatment Not Indicated VTE Drug Contraindication: N/A - Med Ordered
[2024-08-30] MEDS: Spironolactone 25 MG TABLET PO (17:06)
[2024-08-30] MEDS: Sacubitril/Valsartan 49/51 1 TAB TABLET PO (21:04)
[2024-08-31] VITALS (9 sets, daily range): BP systolic 120–170; BP diastolic 76–104; PULSE 77–96; RESP 16–20; TEMP 36.1–36.8; O2SAT 95–98; BMI 32.8
[2024-08-31] MEDS: Potassium Chloride ER 20 MEQ TAB.ER.PRT PO (07:46)
[2024-08-31] MEDS: Spironolactone 25 MG TABLET PO (07:46)
[2024-08-31] MEDS: Empagliflozin 10 MG TABLET PO (07:46)
[2024-08-31] MEDS: Magnesium Oxide 400 MG TABLET PO ×2 (07:46→16:51)
[2024-08-31] MEDS: Sacubitril/Valsartan 49/51 1 TAB TABLET PO (07:46)
[2024-08-31] MEDS: Aspirin Enteric Coated 81 MG TABLET.DR PO (07:46)
--- NOTE | 2024-08-31 07:59 | P.CDIM_ITS ---
PROVIDER RESPONSE TEXT: To clarify, the appropriate diagnosis supported by the clinical indicators: Other (explain): HF with reduced ef QUERY TEXT: PHYSICIAN'S DOCUMENTATION REQUEST Date of Query: 08/31/2024 07:42 AM EDT Patient Name: Slava Morrell Admit Date: 08/29/2024 Dear Kendra Chavez MD, A review of the medical record indicates additional documentation may be needed. Please review below and update the documentation accordingly. Clinical Indicators: Cardiology consultation 08/30/24 - Echocardiogram shows severe LV systolic dysfunction. IV Lasix drip BNP 1933 Acute decompensated congestive heart failure, unknown EF Strick I's and O's Cardiology consulted-IV diuresis lasix drip, entresto, juadiance, may need to add spirinolactone. Please provide further specificity regarding the most likely type of CHF within the body of the writt en Plan: Systolic Please specify if Acute, Chronic, or Acute on chronic, or Unable to determine Diastolic Please specify if Acute, Chronic, or Acute on chronic, or Unable to determine Combined Systolic/Diastolic Please specify if Acute, Chronic, or Acute on chronic, or Unable to determine Other (explain) Clinically unable to determine (explain) Thank you, Melisa Salinas, CCS, CDIS Use of terms such as suspected, likely, concern for, or probable (associated with a specific diagnosi s that is being evaluated, monitored, or treated as if it exists) are acceptable and can be coded in the inpatient se tting, when documented at the time of discharge. Please use your independent medical judgment in providing your response. THIS QUERY IS PART OF THE PERMANENT MEDICAL RECORD
[2024-08-31] MEDS: Sacubitril/Valsartan 97/103 1 TAB TABLET PO ×2 (09:19→20:13)
[2024-08-31] MEDS: carvediloL 3.125 MG TABLET PO ×2 (09:19→20:12)
[2024-08-31 09:27] LABS: Anion Gap 14 (12-20); Blood Urea Nitrogen 17 mg/dL (9-16); Calcium 10.1 mg/dL (8.4-10.2); Carbon Dioxide 37 mmol/L (22-29); Chloride 99 mmol/L (96-108); Estimated Glomerular Filt Rate 60; Glucose Random 108 mg/dL (60-115); Potassium 4.1 mmol/L (3.3-5.1); Sodium 146 mmol/L (135-145)
[2024-08-31 09:32] LABS: B Type Natriuretic Peptide 1004 pg/mL (<100)
--- NOTE | 2024-08-31 10:12 | PM.PNCARD ---
Subjective Subjective Date of Service: 08/31/24 Principal diagnosis: Decompensated congestive heart failure. Interval history: Patient feeling a lot better. Leg edema is improved. Overall negative balance of 6.7 L since yesterday. Creatinine is bumped up to 1.29 today. Sodium is slightly elevated. Potassium is within normal range. Review of Systems Constitutional: Reports no additional constitutional complaints Cardiovascular: Denies chest pain, Reports leg edema (Much improved), Denies lightheadedness, Reports dyspnea on exertion and Denies orthopnea Respiratory: Reports no additional respiratory complaints and Reports dyspnea on exertion Gastrointestinal: Reports no additional gastrointestinal complaints Physical Exam Vital Signs: Last Vital Signs Temp 97.8 F 08/31/24 07:18 Pulse 79 08/31/24 09:19 Resp 18 08/31/24 07:18 BP 156/96 H 08/31/24 09:19 Pulse Ox 98 08/31/24 07:18 O2 Del Method Room Air 08/31/24 07:18 BMI result Body Mass Index 32.8 Const General: cooperative, comfortable, alert and awake Nutritional Appearance: obese Orientation/consciousness: patient oriented x3 Limitations: no limitations HEENT Head: Yes normocephalic and Yes atraumatic Neck Neck: Yes trachea midline, Yes supple and Yes no JVD Resp Effort & Inspection: normal respiratory effort Auscultation: crackles Cardio Jugular venous distension: no JVD Palpation: abnormal PMI displaced PMI Rate: regular rate Rhythm: regular rhythm Heart sounds: S1 normal heart sound present, S2 normal heart sound present, no click, no gallops, no murmurs and no rubs GI Auscultation: normal bowel sounds Skin General skin exam: no rashes or lesions noted Neuro General: patient oriented x3 and no focal motor deficits Extrem General: No clubbing, No cyanosis and Yes edema Psych Appearance: grossly normal Objective Labs and Meds 08/29/24 05:08 08/31/24 08:34 Lab results: Laboratory Results - last 24 hr 08/31/24 08:34 Sodium 146 H Potassium 4.1 Chloride 99 Carbon Dioxide 37 H Anion Gap 14 BUN 17 H Creatinine 1.29 Estim Creat Clear Calc 88.0 Estimated GFR 60 Random Glucose 108 Calcium 10.1 D B-Natriuretic Peptide 1004 H Progress Note: A&P Assessment and plan (1) Heart failure, systolic, with acute decompensation: Status: Acute Assessment and Plan: Acute decompensated systolic heart failure much improved with diuresis. Slight bump in creatinine may be due to aggressive diuresis but needs to be continued. Strict intake and output chart needs to be pursued. Follow renal function and BNP tomorrow. Maximize Entresto today. Add carvedilol 3.125 mg to his regimen. Continue spironolactone and Jardiance. Advised to ambulate as tolerated today. Anticipate discharge tomorrow with outpatient follow-up in his ischemic workup. Will continue to follow with you Time Spent With Patient Time: Total time managing care of this patient today ____ minutes. Progress Note: Quality Stroke Does the patient have a stroke diagnosis?: No Procedures Date of Service Date of Service: 08/31/24
[2024-08-31] MEDS: Acetaminophen 325 MG TABLET 650 MG PO (11:39)
--- NOTE | 2024-08-31 12:48 | MHC.CM.PN ---
CM met with pt. 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 [place] [facility], also the # for [facility]. He said that his ins. was just started 3 days ago and so now he will get a PCP, he is aware that he will be DC with med and need to have medical follow up.
--- NOTE | 2024-08-31 16:43 | P.PNIM_ITS ---
Subjective Subjective Date of Service: 08/31/24 Interval History: chf Review of Systems sob improving no chest pain Review of Systems: Yes all other systems are reviewed and are negative Physical Exam 2 Vital Signs: Vital Signs: Last Vital Signs Temp 97.4 F 08/31/24 16:00 Pulse 82 08/31/24 16:00 Resp 16 08/31/24 16:00 BP 120/76 08/31/24 16:00 Pulse Ox 97 08/31/24 16:00 O2 Del Method Room Air 08/31/24 16:00 BMI result Body Mass Index 32.8 Appearance: Alert.? Oriented X3.? cvs: rrr, [id number] . res:air entry dimnshed ,few scattered rales. abd: no rebound or guarding ,nt, bs present. ext pulses present , no cyanosis . neuro: axo3 , nonfocal. Objective Data Active Medications Acetaminophen (Acetaminophen 325 Mg Tablet) 650 mg PO Q6H PRN PRN Reason: Pain, Mild 1-3,fever,headache Last Admin: 08/31/24 11:39 Dose: 650 mg Documented By: VASILE Aspirin (Aspirin Enteric Coated 81 Mg Tablet.) 81 mg PO DAILY [facility] Last Admin: 08/31/24 07:46 Dose: 81 mg Documented By: VASILE Calcium Carbonate (Calcium Carbonate 750 Mg Tab.Chew) 750 mg PO Q4H PRN PRN Reason: Heartburn Carvedilol (Carvedilol 3.125 Mg Tablet) 3.125 mg PO BID [facility]; Protocol Last Admin: 08/31/24 09:19 Dose: 3.125 mg Documented By: VASILE Empagliflozin (Empagliflozin 10 Mg Tablet) 10 mg PO DAILY [facility] Last Admin: 08/31/24 07:46 Dose: 10 mg Documented By: VASILE Enoxaparin Sodium (Enoxaparin Sodium 40 Mg/0.4 Ml Syringe) 40 mg SUBCUT Q24H [facility] Last Admin: 08/30/24 16:26 Dose: 40 mg Documented By: VASILE Furosemide (Furosemide 40 Mg/4 Ml Vial) 40 mg IVPUSH BID@0900,1800 [facility]; Protocol Hydroxyzine HCl (Hydroxyzine Hcl 25 Mg Tablet) 25 mg PO TID PRN PRN Reason: anxiety Last Admin: 08/29/24 16:36 Dose: 25 mg Documented By: SANDEEP Magnesium Hydroxide (Milk Of Magnesia 30 Ml Oral.Susp) 30 ml PO DAILY PRN PRN Reason: Constipation Magnesium Oxide (Magnesium Oxide 400 Mg Tablet) 400 mg PO BIDPC [facility] Last Admin: 08/31/24 07:46 Dose: 400 mg Documented By: VASILE Melatonin (Melatonin 3 Mg Tablet) 6 mg PO BEDTIME PRN PRN Reason: Insomnia Nitroglycerin (Nitroglycerin 0.4 Mg Tab.Subl) 0.4 mg SUBLINGUAL Q5MX3 PRN PRN Reason: Chest Pain Ondansetron HCl (Ondansetron Hcl 4 Mg/2 Ml Vial) 4 mg IVPUSH Q8H PRN PRN Reason: Nausea and Vomiting Potassium Chloride (Potassium Chloride Er 20 Meq Tab.Er.Prt) 20 meq PO DAILY [facility] Last Admin: 08/31/24 07:46 Dose: 20 meq Documented By: VASILE Sacubitril/Valsartan (Sacubitril/Valsartan 97/103 1 Tab Tablet) 1 tab PO BID [facility]; Protocol Last Admin: 08/31/24 09:19 Dose: 1 tab Documented By: VASILE Sodium Chloride (0.9 % Sodium Chloride Flush 3 Ml Syringe) 3 ml IVFLUSH QSHIFT [facility] Last Admin: 08/31/24 07:46 Dose: Not Given Documented By: VASILE Non-Admin Reason: IV Running Spironolactone (Spironolactone 25 Mg Tablet) 25 mg PO DAILY [facility]; Protocol Last Admin: 08/31/24 07:46 Dose: 25 mg Documented By: VASILE Labs 08/29/24 05:08 08/31/24 08:34 Labs: Laboratory Results - last 24 hr 08/31/24 08:34 Anion Gap 14 Estim Creat Clear Calc 88.0 Estimated GFR 60 Random Glucose 108 Calcium 10.1 D B-Natriuretic Peptide 1004 H Assessment and Plan (1) Heart failure, systolic, with acute decompensation: Status: Acute Assessment and Plan: 49-year-old male with pertinent history of hypertension, leg edema, coronary artery disease who presents to the emergency department for evaluation of chest pain and dyspnea. Acute decompensated congestive heart failure(HF with reduced EF): Strict I's and O's. daily weights chest pain resolved ,trop flat Low-salt diet. transthoracic echocardiogram:Moderately dilated left ventricular with severely reduced LV ejection fraction of 25-30% with grade 2 diastolic dysfunction 2. Moderately reduced RV systolic function 3. Moderately dilated left atrium 4. Mild aortic regurgitation 5. Moderate to severe elevation of right ventricular systolic pressure with significantly elevated right atrial pressures 6. Mildly dilated ascending aorta at 3.8 cm 7. Small pericardial effusion i/o is 6 liter negative Cardiology consulted-IV diuresis lasix, entresto,juadiance,may need to add sprinolactone. Hypertension: Continue home antihypertensives and optimize. dvt prophylax: s/c lovenox. Ongoing need of stay-Acute decompensated congestive heart failure, unknown EF: Need IV Lasix, I&O monitoring. Quality Stroke Does the patient have a stroke diagnosis?: No VTE Prior VTE?: No VTE Risk Level:: Medical - moderate - high VTE Device Contraindication: Treatment Not Indicated VTE Drug Contraindication: N/A - Med Ordered
[2024-08-31] MEDS: Enoxaparin Sodium 40 MG/0.4 ML SYRINGE SUBCUT (16:51)
[2024-08-31] MEDS: 0.9 % Sodium Chloride Flush 3 ML SYRINGE IVFLUSH ×2 (16:52→20:16)
[2024-08-31] MEDS: Furosemide 40 MG/4 ML VIAL IVPUSH (16:52)
[2024-08-31] MEDS: hydrOXYzine HCL 25 MG TABLET PO (20:15)
[2024-09-01] VITALS: BP 136/83; PULSE 77; RESP 16; TEMP 36.9; O2SAT 94
[2024-09-01 04:00] VITALS: BP 120/69; PULSE 70; RESP 16; TEMP 36.3; O2SAT 97
[2024-09-01 08:00] VITALS: BP 136/90; PULSE 74; RESP 17; TEMP 36.3; O2SAT 98
[2024-09-01] MEDS: carvediloL 3.125 MG TABLET PO (08:30)
[2024-09-01] MEDS: Aspirin Enteric Coated 81 MG TABLET.DR PO (08:30)
[2024-09-01] MEDS: Magnesium Oxide 400 MG TABLET PO (08:30)
[2024-09-01] MEDS: Sacubitril/Valsartan 97/103 1 TAB TABLET PO (08:31)
[2024-09-01] MEDS: Empagliflozin 10 MG TABLET PO (08:31)
[2024-09-01] MEDS: Spironolactone 25 MG TABLET PO (08:31)
[2024-09-01] MEDS: 0.9 % Sodium Chloride Flush 3 ML SYRINGE IVFLUSH (08:32)
--- NOTE | 2024-09-01 10:51 | P.PNCA_ITS ---
Subjective Subjective Date of Service: 09/01/24 Principal diagnosis: Decompensated congestive heart failure. Interval history: Patient feeling a lot better. Blood pressure is much better controlled on current medications. Review of Systems Review of Systems Yes all other systems are reviewed and are negative Physical Exam Vital Signs: Last Vital Signs Temp 97.4 F 09/01/24 08:00 Pulse 74 09/01/24 08:00 Resp 17 09/01/24 08:00 BP 136/90 H 09/01/24 08:00 Pulse Ox 98 09/01/24 08:00 O2 Del Method Room Air 09/01/24 08:00 BMI result Body Mass Index 32.8 Const General: cooperative, comfortable, alert and awake Nutritional Appearance: obese Orientation/consciousness: patient oriented x3 Limitations: no limitations HEENT Head: Yes normocephalic and Yes atraumatic Neck Neck: Yes trachea midline, Yes supple and Yes no JVD Resp Effort & Inspection: normal respiratory effort Auscultation: crackles Cardio Jugular venous distension: no JVD Palpation: abnormal PMI displaced PMI Rate: regular rate Rhythm: regular rhythm Heart sounds: S1 normal heart sound present, S2 normal heart sound present, no click, no gallops, no murmurs and no rubs GI Auscultation: normal bowel sounds Skin General skin exam: no rashes or lesions noted Neuro General: patient oriented x3 and no focal motor deficits Extrem General: No clubbing, No cyanosis and Yes edema Psych Appearance: grossly normal Objective Labs and Meds 08/29/24 05:08 08/31/24 08:34 Progress Note: A&P Assessment and plan (1) Heart failure, systolic, with acute decompensation: Status: Acute Assessment and Plan: Decompensated congestive heart failure with severe LV systolic dysfunction. Clinically much improved with diuresis. Can switch to oral diuretics Lasix 40 mg daily. CHF education to be provided in [place]. Continue current neurohormonal modulation with Coreg, Entresto, Jardiance and spironolactone therapy. CHF management was discussed in details. I think patient can be discharged home today and will set up for outpatient follow-up. Thank you for allowing me to partake in his care Time Spent With Patient Time: Total time managing care of this patient today ____ minutes. Progress Note: Quality Stroke Does the patient have a stroke diagnosis?: No Procedures Date of Service Date of Service: 09/01/24
[2024-09-01 12:00] VITALS: BP 147/97; PULSE 90; RESP 18; TEMP 36; O2SAT 98
--- NOTE | 2024-09-01 12:05 | MHC.CM.PN ---
Pt has been medically cleared for DC, he will go home via private transport and plan is self care.
--- NOTE | 2024-09-01 12:30 | PM.DS ---
DS: Providers Provider Date of Service: 09/01/24 Date of admission: 08/29/24 03:32 Date of discharge: 09/01/24 Primary care physician: None Physician Consults: 08/29/24 03:31 Consult to Cardiology Routine Consulting Provider: [facility] Reason for consultation: Chest pain, CHF Has provider been notified: Yes Attending physician on discharge: Kendra Chavez Discharging clinician: Kendra Chavez DS: Diagnosis Discharge Diagnosis (1) Heart failure, systolic, with acute decompensation: Status: Acute DS: Summary Hospital Course Hospital Course: HPI:49-year-old male with pertinent history of hypertension, leg edema, coronary artery disease who presents to the emergency department for evaluation of chest pain and dyspnea. Patient states his symptoms have been ongoing for the last 3 days. He has been having chest pain which is worse with exertion and better with rest. Also has been having dyspnea which is worse with exertion and worse when lying flat. Has noticed lower extremity edema. Patient states he takes fluid pills in [place] but does not have any PCP and has not been on fluid pills for the last few days. He was seen in the ER on 08/21 and prescribed furosemide but he had not picked it up and had not been taking it. No history of CHF that he knows of. 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 No fever chills, palpitations, abdominal pain, changes in urinary or bowel habits. In the emergency department, chest x-ray concerning for congestive heart failure and BNP found to be elevated. Also found to have elevated troponin. Creatinine 1.68. Hospital course: 49-year-old male with pertinent history of hypertension, leg edema, coronary artery disease who presents to the emergency department for evaluation of chest pain and dyspnea: admitted for treatment for HF -admitted for IV diuresis, echo showed EF 20-30%. Patient was seen by Cardiology: Entresto and Jardiance added as well as spironolactone. Cardio may arrange their own appointment,also encouraged him to get primary doctor appointment as soon as possible. hold potassium-since patient is on entresto and spironolactone. CHF education given-if gains weight 2 lb or more in a week-will need outpatient Lasix dosing assessment with PCP. Consider Follow-up with cardiology outpatient. moniter bmp in 1 week. plan: coreg 3.125 mg po bid entresto(97-103 mg) 1 tab po bid . Juardiance 10 mg po qd . sprinolactone 25 mg po qd. lasix 40 mg po qd. moniter bmp in 1 week . Patient was strongly advised for PCP appointment, if patient can not get to PCP appointment may need to follow-up in urgent care in 1 week or so for follow-up. Cardiology may arrange their own appointment. Above management discussed with the patient in detail length with his family present as well as metal fabricator welder was there and nursing staff. Patient understand and in agreement with the above plan, time spent 40 minute. Time Attestation Total time managing care of this patient today: 40 mintues. Discharge Coordination Time (in mins): 40 min Quality: Safe Use of Opioids Does Pt have an Active Cancer Diagnosis on the Problem List?: No Quality: Stroke Does the patient have a stroke diagnosis?: No Physical Exam Vital Signs: Vital Signs: Last Vital Signs Temp 97.4 F 09/01/24 08:00 Pulse 74 09/01/24 08:00 Resp 17 09/01/24 08:00 BP 136/90 H 09/01/24 08:00 Pulse Ox 98 09/01/24 08:00 O2 Del Method Room Air 09/01/24 08:00 BMI result Body Mass Index 32.8 Appearance: Alert.? Oriented X3.? cvs: rrr, [id number] . res:air entry dimnshed ,few scattered rales. abd: no rebound or guarding ,nt, bs present. ext pulses present , no cyanosis . neuro: axo3 , nonfocal. Discharge Plan Discharge Anticipated Discharge Date/Time: 09/01/24 11:57 Patient Disposition: Home, Self-Care Discharge Diagnosis: chf Referrals: Physician,None [Primary Care Provider] - 1 Week Discharge Medications: New aspirin 81 mg Tablet,Delayed Release (Dr/Ec) 81 mg PO DAILY Qty: 30 0RF spironolactone 25 mg Tablet 25 mg PO DAILY Qty: 90 0RF Protocol: Hold for SBP< HOLD for SBP < : 90 carvedilol 3.125 mg Tablet 3.125 mg PO BID Qty: 180 0RF Protocol: Hold for SBP/HR < HOLD for SBP < : 90 HOLD for HR < : 60 Jardiance 10 mg Tablet 10 mg PO DAILY Qty: 90 0RF Entresto 97-103 mg Tablet 1 tab PO BID Qty: 180 0RF Protocol: Hold for SBP< HOLD for SBP < : 90 Continued furosemide [Lasix] 40 mg tablet 40 mg PO DAILY Qty: 90 0RF hydroxyzine HCl 25 mg tablet 25 mg PO TID PRN (Reason: anxiety) Qty: 30 0RF Discontinued losartan-hydrochlorothiazide 50-12.5 mg tablet 1 tab PO DAILY 90 Days Qty: 90 0RF potassium chloride 20 mEq tablet,ER particles/crystals 20 meq PO DAILY 30 Days Qty: 30 0RF Discharge Orders: Discharge Order (Routine); Ordered 09/01/24 Ordered By: Kendra Chavez Diet: Advance to usual diet Activity on Discharge: As tolerated Stand Alone Forms: Patient Portal Discharge page Print Language: Malagasy Care Plan Goals: 49-year-old male with pertinent history of hypertension, leg edema, coronary artery disease who presents to the emergency department for evaluation of chest pain and dyspnea: admitted for treatment for HF -admitted for IV diuresis, echo showed EF 20-30%. Patient was seen by Cardiology: Entresto and Jardiance added as well as spironolactone. Cardio may arrange their own appointment,also encouraged him to get primary doctor appointment as soon as possible. hold potassium-since patient is on entresto and spironolactone. CHF education given-if gains weight 2 lb or more in a week-will need outpatient Lasix dosing assessment with PCP. Consider Follow-up with cardiology outpatient. moniter bmp in 1 week. Health Concerns: coreg 3.125 mg po bid entresto(97-103 mg) 1 tab po bid . Juardiance 10 mg po qd . sprinolactone 25 mg po qd. lasix 40 mg po qd. moniter bmp in 1 week . Patient was strongly advised for PCP appointment, if patient can not get to PCP appointment may need to follow-up in urgent care in 1 week or so for follow-up. Cardiology may arrange their own appointment. Plan of Treatment: As above. Assessment: As above. Patient Instructions: Heart Failure (DC) Discharge Date/Time: 09/01/24 14:24
== END 2024-09-01 14:24 | disposition home or self-care (01) | DRG 194 ==
LOC: HO.ED 08-29 02:16 → HO.EDOVER 08-29 03:58 → HO.IMC 08-29 08:32
PROVIDERS: Emergency Medicine Emergency Medical Services; Admitting Provider Student in an Organized Health Care Education/Training Program; Emergency Provider Internal Medicine; Visit Provider Internal Medicine
DX: I11.0 Hypertensive heart disease with heart failure (principal); I42.0 Dilated cardiomyopathy; I50.23 Acute on chronic systolic (congestive) heart failure; I25.10 Atherosclerotic heart disease of native coronary artery without angina pectoris; E87.6 Hypokalemia; Z20.822 Contact with and (suspected) exposure to COVID-19
CPT/HCPCS: 0241U; 36415; 71045; 80048; 80053; 82947; 83880; 84484; 85025; 85027; 93005; 93306; 99285; J1650; J1940

== ENCOUNTER → 2024-08-28 23:44 | Outpatient (BNV) | payer MEDICAID, SELFPAY | PROVIDERS: Admitting Provider Student in an Organized Health Care Education/Training Program; Emergency Provider Internal Medicine; Visit Provider Internal Medicine Cardiovascular Disease | DX: R94.31 Abnormal electrocardiogram [ECG] [EKG] (principal); R06.02 Shortness of breath | CPT/HCPCS: 93010 ==

== ENCOUNTER → 2024-08-28 23:45 | Outpatient (BNV) | payer MEDICAID, SELFPAY | PROVIDERS: Visit Provider Radiology Diagnostic Radiology | DX: J90 Pleural effusion, not elsewhere classified (principal) | CPT/HCPCS: 71045 ==

== ENCOUNTER 2024-08-29 03:32 | Outpatient (BNV) | payer MEDICAID, SELFPAY | END 2024-08-29 07:00 | PROVIDERS: Admitting Provider Student in an Organized Health Care Education/Training Program; Emergency Provider Internal Medicine; Visit Provider Internal Medicine Cardiovascular Disease | DX: I35.1 Nonrheumatic aortic (valve) insufficiency (principal); I34.0 Nonrheumatic mitral (valve) insufficiency; I36.1 Nonrheumatic tricuspid (valve) insufficiency; I16.1 Hypertensive emergency | CPT/HCPCS: 93306 ==

== ENCOUNTER → 2024-08-29 03:32 | Outpatient (BNV) | payer MEDICAID, SELFPAY | PROVIDERS: Admitting Provider Student in an Organized Health Care Education/Training Program; Emergency Provider Internal Medicine; Visit Provider Student in an Organized Health Care Education/Training Program | DX: I50.23 Acute on chronic systolic (congestive) heart failure (principal) | CPT/HCPCS: 99223; 99231; 99232; 99239; 99499 ==

== ENCOUNTER → 2024-08-29 03:32 | Outpatient (BNV) | payer MEDICAID, SELFPAY | PROVIDERS: Admitting Provider Student in an Organized Health Care Education/Training Program; Emergency Provider Internal Medicine; Visit Provider Internal Medicine Cardiovascular Disease | DX: I50.23 Acute on chronic systolic (congestive) heart failure (principal) | CPT/HCPCS: 99223 ==

== ENCOUNTER 2024-09-22 13:46 | Outpatient (AMB) | payer MEDICAID, SELFPAY ==
[2024-09-22 14:02] VITALS: BP 148/82; PULSE 73; BMI 34.0
--- NOTE | 2024-09-22 14:02 | MHC.OFFVIS ---
Vital Signs 09/22/24 14:02 Height 5 ft 11 in Weight 243 lb 13.3 oz BMI 34.0 BP 148/82 H Blood Pressure Location Rt brachial Position Sitting Pulse 73 Pulse Source Pulse Oximeter Intake Visit Reasons: 7-10days [facility] f/up- per NS Application Support Consultant Required: Yes Application Support Consultant Language: Bottom Sprayer Services: Application Support Consultant Present Benefit Authorizer: Benefit Authorizer Present Allergies No Known Allergies Allergy (Verified 09/22/24 14:10) Medication List - Last Reconciled 09/22/24 by BALBIR Cordero aspirin 81 mg PO DAILY carvedilol 3.125 mg See Protocol PO BID empagliflozin (Jardiance) 10 mg PO DAILY furosemide (Lasix) 40 mg PO DAILY hydroxyzine HCl 25 mg PO TID PRN sacubitril-valsartan 97-103 mg (Entresto) 1 tab See Protocol PO BID spironolactone 25 mg See Protocol PO DAILY HPI HPI 7-10days [facility] f/up- per NS: Details: Slava is a 49-year-old male past medical history of hypertension, coronary artery disease with reported prior MIs and coronary stents, in [place], vessels unknown, Congestive heart failure who was recently admitted to [facility] with increasing shortness of breath and treated for acute on chronic systolic heart failure. Echocardiogram showed EF 25-30%. He was diuresed and started on appropriate medications including Lasix, Entresto, Aldactone, Jardiance and carvedilol. He now presents for post hospital follow-up. Today he reports that he is scheduled for cardiac catheterization on 10/12/2024. He tells me he has had 5 cardiac catheterizations in the past and has no questions regarding the procedure. Prior to his hospital admission he says he went 1 year without taking any medications. He is now taking all meds as directed. He has done well since his hospital discharge and tells me his breathing is back to normal. He no longer has any leg edema. He has not been having any chest discomfort at rest or with activity. He denies heart palpitations, lightheadedness, presyncope, syncope. 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 He says he tolerates this without any concerning symptoms. is present. Certified spanish medical interpreter used. [facility] Medical History Leg edema Coronary artery disease Hypertension Social History Household Members: Significant Other and Children Housing: House Patient Tobacco Use Status: Never used Tobacco Substance Use Type: Marijuana Review of Systems Const All systems reviewed & are unremarkable except as noted in HPI and below ENT Denies dizziness Card Denies chest pain, Denies chest pain at rest, Denies chest pain with activity, Denies rapid heart rate, Denies pedal edema, Denies edema, Denies leg edema, Denies lightheadedness, Denies palpitations, Denies dyspnea, Denies dyspnea on exertion and Denies orthopnea Resp Denies cough, Denies dyspnea and Denies dyspnea on exertion GI Denies hematochezia and Denies change in stool character Musc Denies abnormal gait, Denies limited range of motion, Denies muscle cramps, Denies muscle weakness, Denies numbness, Denies radiating pain into limb, Denies stiffness and Denies tingling Neuro Denies abnormal gait, Denies dizziness, Denies numbness and Denies tingling Endo Denies palpitations Physical Exam Vital Signs: Last Vital Signs Pulse 73 09/22/24 14:02 BP 148/82 H 09/22/24 14:02 BMI result Body Mass Index 34.0 Const General: cooperative, healthy appearing, comfortable and no acute distress Orientation/consciousness: patient oriented x3 Neck Neck: Yes normal visual inspection Resp Effort & Inspection: normal respiratory effort Auscultation: clear to auscultation bilaterally, no crackles, no rales, no rhonchi and no wheezes Cardio Rate: regular rate Rhythm: regular rhythm Heart sounds: S1 normal heart sound present, S2 normal heart sound present, no gallops, no murmurs and no rubs Neuro General: patient oriented x3 Extrem General: Yes normal to inspection, No no pedal edema and No calf tenderness Psych Appearance: grossly normal Mental Status: mental status grossly normal Speech and movement: Normal speech and movement present Results Reviewed Results Reviewed: Conclusions: - 1. Moderately dilated left ventricular with severely reduced LV ejection fraction of 25-30% with grade 2 diastolic dysfunction 2. Moderately reduced RV systolic function 3. Moderately dilated left atrium 4. Mild aortic regurgitation 5. Moderate to severe elevation of right ventricular systolic pressure with significantly elevated right atrial pressures 6. Mildly dilated ascending aorta at 3.8 cm 7. Small pericardial effusion Assessment & Plan Assessment & Plan (1) Heart failure, systolic, with acute decompensation: Code(s): I50.23 - Acute on chronic systolic (congestive) heart failure Category: Medical Plan: [facility] admission with increasing shortness of breath, edema and found to have acute, likely on chronic systolic heart failure. Echocardiogram 08/29/2024 showed EF 25-30%, grade 2 diastolic dysfunction, moderate decrease in the RV systolic function, moderate to severe elevated RV systolic pressure, small pericardial effusion. He reported history of CAD, cardiac catheterization with prior stents, prior MIs. He does not appear fluid overloaded at this time. Continue Lasix, Entresto, Aldactone, Jardiance. Blood pressure is elevated at 140 8/82. Will increase carvedilol to 6.25 mg b.i.d.. Instructed on obtaining lab work in the next few days. Cardiac catheterization is being planned. Procedure and risks reviewed with him. He is agreeable to proceed. Hold Lasix day of the procedure, hold Jardiance 3 days prior to procedure. Cardiology follow-up 2 weeks post procedure. Will reach out to hospital in [place] for records. (2) Coronary artery disease: Code(s): I25.10 - Atherosclerotic heart disease of [place] coronary artery without angina pectoris Category: Medical Plan: Reported history of CAD, details unknown. He reports having coronary stent, vessel unknown. (3) Hypertension: Code(s): I10 - Essential (primary) hypertension Category: Medical Plan: Blood pressure goal less than 130/80. Elevated today. Increasing carvedilol. No other med changes made. Plan Time spent on chart review, documentation, interview and assessment I reviewed with the patient the necessity of an upcoming cardiac catheterization to evaluate stent patency. We discussed pre-procedure instructions, emphasizing withholding Lasix and Jardiance due to concerns about renal contrast effects. I detailed procedural risks, including a 0.1% myocardial infarction risk, outlining contrast-induced nephropathy precautions. I reviewed increased carvedilol dosing for blood pressure management and optimized contractility. Consent for procedures and medication adjustments was obtained, with a clear plan for postoperative follow-up to appraise procedural outcomes and medication effectiveness. Patient was informed and verbally consented to the use of an ambient scribe for clinic note documentation during this visit. Orders: Orders B Type Natriuretic Peptide Today I50.23 - Acute on chronic systolic (congestive) heart failure, I50.9 - Heart failure, unspecified Prothrombin Time INR Today I50.23 - Acute on chronic systolic (congestive) heart failure, I50.9 - Heart failure, unspecified Lipid Panel Today I25.10 - Atherosclerotic heart disease of [place] coronary artery without angina pectoris Basic Metabolic Panel Today I50.23 - Acute on chronic systolic (congestive) heart failure, I50.9 - Heart failure, unspecified Complete Blood Count Auto Diff Today I50.23 - Acute on chronic systolic (congestive) heart failure, I50.9 - Heart failure, unspecified Medications: New carvedilol must administer with a meal/food Dose increased 6.25 mg PO BID 90 days 180 tabs 1RF Discontinued carvedilol Discontinued Reason: Doctor's Order 3.125 mg See Protocol PO BID 180 tabs 0RF Patient Instructions: - Monitor for lower leg swelling, chest pain, or trouble breathing. - Stop Lasix the morning of the catheterization. - Stop Jardiance three days before the procedure. - Attend catheterization at scheduled time. - Implement carvedilol dose change as instructed. - Obtain labs at [facility] within a week. - Follow up in two weeks post-procedure. - Seek immediate care if symptoms worsen. Coding Level of Care Code Est Pt Level 4 (77050) Complex EM visit Add On G2211 Diagnoses Heart failure, systolic, with acute decompensation I50.23 Coronary artery disease I25.10 Hypertension I10 Time Spent (min) 32
== END 2024-09-22 14:44 | disposition home or self-care (01) ==
LOC: HO.HCS 13:46
PROVIDERS: Visit Provider Nurse Practitioner Family
DX: I50.23 Acute on chronic systolic (congestive) heart failure (principal); I25.10 Atherosclerotic heart disease of native coronary artery without angina pectoris; I10 Essential (primary) hypertension
CPT/HCPCS: 99214

== ENCOUNTER → 2024-09-22 13:46 | Outpatient (BNVA) | payer OTHER, SELFPAY | PROVIDERS: Visit Provider Nurse Practitioner Family | DX: I11.0 Hypertensive heart disease with heart failure (principal); I50.32 Chronic diastolic (congestive) heart failure; I25.10 Atherosclerotic heart disease of native coronary artery without angina pectoris; I25.2 Old myocardial infarction; Z95.5 Presence of coronary angioplasty implant and graft | CPT/HCPCS: 99212 ==

== ENCOUNTER 2025-03-05 11:05 | Inpatient (IN) | payer MEDICAID, SELFPAY ==
[2025-03-05] VITALS (8 sets, daily range): BP systolic 136–182; BP diastolic 63–103; PULSE 62–85; RESP 17–22; TEMP 36.8–37.1; O2SAT 97–100; BMI 34.6
--- NOTE | ~2025-03-05 | XR_ITS ---
EXAMINATION: XR CHEST CLINICAL INFORMATION: pain, dyspneaApril 2024 COMPARISON: None available. TECHNIQUE: Frontal view of the chest was obtained. FINDINGS: Prominence of the interstitial markings and indistinct margins in the parietal regions. No gross consolidation pleural effusion or pneumothorax. Cardiomediastinal silhouette size is normal. Osseous structures are grossly intact with poor evaluation of the axial skeleton due to patient's body habitus. XR/XR chest 1V IMPRESSION: Concerning mild interstitial lung edema versus acute small airway inflammatory processes. Electronically signed by: Sanjay Ramirez MD 03/05/2025 02:07 PM EDT
--- NOTE | ~2025-03-05 | XR_ITS ---
EXAMINATION: XR WRIST, LEFT CLINICAL INFORMATION: pain, swelling COMPARISON: None available. TECHNIQUE: PA, lateral, oblique, and scaphoid views of the left wrist. FINDINGS: No fracture, dislocation, or suspicious bone lesion. Normal bone mineralization. Normal alignment. Joint spaces are preserved. No significant arthropathy. Soft tissues appear normal. XR/XR wrist LT min 3V IMPRESSION: Normal left wrist. Electronically signed by: Jose Rojas MD 03/05/2025 02:07 PM EDT
--- NOTE | 2025-03-05 12:06 | ED.GENADULT ---
HPI - General Adult General Chief complaint: Chest Pain Stated complaint: hand pain Time Seen by Provider: 03/05/25 12:35 Source: patient, family and old records reviewed Mode of arrival: ambulatory Limitations: no limitations History of Present Illness ED Provider: DANICA KAY narrative: 49 yo male with PMH of HTN, CAD treated in [place], CHF EF 25-30% who has not taken any of his medications x 2 weeks due to lack of refills. He reports chest pain and dyspnea as well for the past day. He has no cough, fevers, he states he has constant pressure across his chest. He has gained 30lbs in a month. He also notes leg swelling. He cannot get into his PCP right now. He also has L wrist pain and swelling at a bump he has always had this has gotten worse. He denies new trauma but there is overuse at work. He is R handed. complaint: chest pain, L wrist pain Onset (ago): day(s) ( >1 day) Location: chest, left and upper extremity Radiation: non-radiation Severity: moderate Quality: constant Pain Consistency: constant Relieving factors: none Exacerbating factors: movement Associated symptoms: chest pain, shortness of breath and other Treatments prior to arrival: none Related Data Previous Rx's ?Medication ?Instructions ?Recorded aspirin 81 mg tablet,delayed 81 mg PO DAILY #30 tabs 09/01/24 release carvedilol 6.25 mg tablet 6.25 mg PO BID 90 days #180 tabs 12/13/24 empagliflozin 10 mg tablet 10 mg PO DAILY #90 tabs 12/13/24 (Jardiance) furosemide 40 mg tablet (Lasix) 40 mg PO DAILY #90 tabs 12/13/24 hydroxyzine HCl 25 mg tablet 25 mg PO TID PRN anxiety #30 tabs 12/13/24 sacubitril 97 mg-valsartan 103 mg 1 tab PO BID #180 tabs 12/13/24 tablet (Entresto) spironolactone 25 mg tablet 25 mg PO DAILY #90 tabs 12/13/24 Allergies Allergy/AdvReac Type Severity Reaction Status Date / Time No Known Allergies Allergy Verified 03/05/25 12:21 Review of Systems Review of Systems: Constitutional : No Fever, No Chills ENT/Mouth : No sore throat, No Rhinorrhea, No Swallowing Difficulty Eyes: No Eye Pain, No Swelling, No Redness Cardiovascular : pos Chest Pain, positive SOB, No Orthopnea, positive Edema Respiratory : No Cough, No Sputum, No Wheezing, positive dyspnea Gastrointestinal : No Nausea, No Vomiting, No Diarrhea, No abdominal Pain, No Hematochezia, No Melena Genitourinary : No Dysuria, No Urinary Frequency, No Hematuria Musculoskeletal : pos joint pain, No Myalgias Skin : No Skin Lesions, No rash Neuro : No Weakness, No Numbness, No Dizziness, No Headache All other systems reviewed and are negative [facility] Past Medical History Attestation statement: The following information was validated with the patient. Source: old records reviewed Medical History Leg edema Coronary artery disease Hypertension Social History Social History Household Members: Significant Other and Children Housing: House Patient Tobacco Use Status: Never used Tobacco Smoked in Last 30 Days: No Use of substances other than those prescribed or required for medical reasons: No Substance Use Type: Marijuana Advance Directives: No Advance Directives Information Provided: Yes Physical Exam ED Vital Signs: Vital Signs - 24 hr 03/05/25 12:03 03/05/25 13:07 03/05/25 13:12 Temperature 98.6 F 98.3 F Pulse Rate 84 72 Respiratory Rate 18 22 H Blood Pressure 182/89 H 136/63 175/103 H Pulse Oximetry 98 97 Oxygen Delivery Method Room Air Room Air BMI result Body Mass Index 34.6 Appearance: Alert. Oriented X3. No acute distress. Eyes: Pupils equal, round and reactive to light. ENT: Pharynx normal. Neck: Normal inspection. Neck supple. CVS: Normal heart rate and rhythm. Pulses normal. Respiratory: No respiratory distress. Breath sounds rales in both bases Abdomen: Soft and nontender. Skin: Skin warm and dry. Normal skin color. Extremities: 2+ pitting edema both legs, L wrist no bruit ttp along L wrist with mild swelling but no redness and can range the wrist - distal NV intact Neuro: Oriented X 3. No motor deficit. No sensory deficit. Course Course Course Narrative: RME, this is a rapid medical exam performed by Oswaldo Corona please refer to primary provider for complete H&P- 49-year-old male with past medical history significant for coronary artery disease, chronic kidney disease, heart failure presents for evaluation of multiple complaints. He complains of chest pain. He states he has had 6 previous myocardial infarctions. Plan for cardiac workup including labs, troponin, EKG and a chest x-ray. He also complains of pain to his left wrist. On the ventral side to the radial edge there is a 2 cm area of edema. Possible ganglion cyst. Medications Administered Discontinued Medications Generic Name Dose Route Start Last Admin Trade Name Khalif PRN Reason Stop Dose Admin Furosemide 40 mg 03/05/25 12:51 03/05/25 13:07 Furosemide 40 Mg/4 Ml Vial IVPUSH 03/05/25 12:52 40 mg STAT STA Administration Protocol Oxycodone HCl 5 mg 03/05/25 12:51 03/05/25 13:08 Oxycodone Hcl Immed Release 5 Mg Tablet PO 03/05/25 12:52 5 mg ONCE ONE Administration Procedures Procedure Narrative Procedure Narrative: Zahraa Purvis, DO 03/05/25 1439 bedside L wrist US - small cyst noted, no blood flow seen in cyst itself, no signs of cobblestoning or skin infection Medical Decision Making Medical Decision Making [facility] Narrative: 49 yo male with PMH of HTN, CAD treated in [place], CHF EF 25-30% here with c/o increased edema, chest pains, L wrist pain no trauma but overuse. At this time he has not had his meds x 2 weeks he appears in CHF. Will obtain EKG, trop, BNP and start on IV lasix. US of L wrist but I suspect ganglion cyst. He has no signs of infection. Will splint. Anticipate admission given his weight gain and CHF symptoms Differential Diagnosis Differential Diagnoses: The differential diagnosis associated with the presentation includes CHF, ganglion cyst, atypical chest pain, non compliance Admission/Observation Consideration of admission/observation: Escalation of care including admission/observation considered admit for IV diuresis Consult Healthcare Provider Management of the patient was discussed with: Hospitalist (will admit) Lab Data [facility] Lab Attestation statement: I reviewed the patient's lab results. 03/05/25 13:06 03/05/25 13:06 Labs: Lab Results 03/05/25 Range/Units 13:06 WBC 6.6 (4.8-10.8) X10*3/uL RBC 5.07 (4.60-5.80) X10*6/uL Hgb 13.8 L (14.0-18.0) g/dl Hct 41.1 L (42.0-52.0) % MCV 81.1 (80.0-98.0) fL MCH 27.2 (27.0-33.0) pg MCHC 33.6 (31.0-36.0) g/dl RDW 13.9 (11.0-16.0) % Plt Count 241 (160-400) X10*3/uL MPV 9.7 (9.4-12.4) fL Immature Gran % (Auto) 0.5 H (0.0-0.4) % Neut % (Auto) 62.6 (45-73) % Lymph % (Auto) 19.8 L (20-40) % [place] % (Auto) 11.2 H (2-11) % Eos % (Auto) 5.1 H (0-4) % Baso % (Auto) 0.8 (0-2) % Lymph # (Auto) 1.3 (1.2-4.9) X10*3/uL [place] # (Auto) 0.7 (0.1-1.2) X10*3/uL Eos # (Auto) 0.3 (0.0-0.4) X10*3/uL Baso # (Auto) 0.1 (0.0-0.2) X10*3/uL Abs Immat Gran (auto) 0.03 (0.00-0.03) X10*3/uL Absolute Neuts (auto) 4.1 (2.0-8.3) x10*3/uL Absolute Nucleated RBC 0.000 (0.0-0.012) X10*3/uL Nucleated RBC % (auto) 0.0 (0.0-0.2) /100WBC Sodium 141 (135-145) mmol/L Potassium 4.0 (3.3-5.1) mmol/L Chloride 106 (96-108) mmol/L Carbon Dioxide 29 (22-29) mmol/L Anion Gap 10 L (12-20) BUN 18 H (9-16) mg/dL Creatinine 1.08 (0.5-1.4) mg/dL Estim Creat Clear Calc 107.8 Estimated GFR > 60 Random Glucose 100 (60-115) mg/dL Calcium 9.1 D (8.4-10.2) mg/dL Total Bilirubin 0.4 (0.0-1.0) mg/dL AST 24 (5-37) U/L ALT 25 (0-40) U/L Alkaline Phosphatase 75 (39-117) U/L Troponin I High Sens 26.9 D (<3.5-35.0) ng/L NT-Pro-B Natriuret Pep 2490.1 H (<300) pg/mL Total Protein 6.9 (6.5-8.0) g/dL Albumin 4.2 (3.5-5.0) g/dL Lipase 34 (8-78) U/L Independent Interpretation I performed an independent interpretation of an: EKG and Plain X-Ray (edema) Interpretation: Rate: 70 Rhythm: NSR Ona: normal Normal P waves. Normal TITO. Normal QRS complex. ST T wave : no DONNIE, tall t waves in anterior leads, nonspecific ST T depressions I and aVL qTC: 477 prior studies: no sig change from prior The study has been interpreted contemporaneously by me. . Radiology Impression Discussion of test interpretation with radiology: I have reviewed the radiologist's reading. Independent Historian Clinical information obtained from an independent historian. History obtained from or confirmed by: Spouse External Record Review External record reviewed: Outpatient record, Prior outpatient labs and Prior outpatient radiology Discharge Plan Discharge Clinical Impression: Congestive heart failure, Ganglion cyst Patient Disposition: Admitted As Inpatient Print Language: Portuguese
--- NOTE | 2025-03-05 12:07 | ECG_ITS ---
Test Reason : CP Blood Pressure : */* mmHG Vent. Rate : 70 BPM Atrial Rate : 70 BPM P-R Int : 186 ms QRS Dur : 108 ms QT Int : 442 ms P-R-T Axes : 54 10 119 degrees QTcB Int : 477 ms Normal sinus rhythm Left ventricular hypertrophy with repolarization abnormality ( Sokolow-Vazquez , Amelia product , Romhilt-Jones ) Abnormal ECG When compared with ECG of 28-Aug-2024 23:58, Borderline criteria for Inferior infarct are no longer Present Nonspecific T wave abnormality has replaced inverted T waves in Inferior leads T wave inversion more evident in Lateral leads Referred By: Raad Corona Electronically Signed By: LEWIS TURNER MD
[2025-03-05] MEDS: Furosemide 40 MG/4 ML VIAL IVPUSH (13:07)
[2025-03-05] MEDS: oxyCODONE HCl Immed Release 5 MG TABLET PO (13:08)
[2025-03-05 13:14] LABS: MANUAL DIFF FLAG NO
[2025-03-05 13:16] LABS: Hematocrit 41.1 % (42.0-52.0); Hemoglobin 13.8 g/dl (14.0-18.0); Imm Gran Abs Auto 0.03 X10*3/uL (0.00-0.03); Imm Gran Pct Auto 0.5 % (0.0-0.4); Lymphocytes Absolute Auto 1.3 X10*3/uL (1.2-4.9); Mean Corpuscular HGB Conc 33.6 g/dl (31.0-36.0); Mean Corpuscular Hemoglobin 27.2 pg (27.0-33.0); Mean Corpuscular Volume 81.1 fL (80.0-98.0); NRBC Abs Auto 0.000 X10*3/uL (0.0-0.012); NRBC Pct Auto 0.0 /100WBC (0.0-0.2); Platelet Count 241 X10*3/uL (160-400); Red Blood Count 5.07 X10*6/uL (4.60-5.80); White Blood Count 6.6 X10*3/uL (4.8-10.8)
[2025-03-05 13:32] LABS: Alanine Aminotransferase 25 U/L (0-40); Albumin Level 4.2 g/dL (3.5-5.0); Alkaline Phosphatase 75 U/L (39-117); Anion Gap 10 (12-20); Aspartate Amino Transferase 24 U/L (5-37); Blood Urea Nitrogen 18 mg/dL (9-16); Calcium 9.1 mg/dL (8.4-10.2); Carbon Dioxide 29 mmol/L (22-29); Chloride 106 mmol/L (96-108); Creatinine Clr Calc Pharmacy 107.8; Estimated Glomerular Filt Rate > 60; Lipase 34 U/L (8-78); Potassium 4.0 mmol/L (3.3-5.1); Sodium 141 mmol/L (135-145); Total Protein 6.9 g/dL (6.5-8.0)
[2025-03-05 13:40] LABS: NT Pro B Type Natriuretic Pept 2490.1 pg/mL (<300); Troponin-I High Sensitivity 26.9 ng/L (<3.5-35.0)
--- NOTE | 2025-03-05 14:22 | PM.IMHP ---
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 Hence he has been without meds for awhile. And he reports gaining nearly 30 lb of weight. He reports substernal chest pain , similar to prior, reports symptomatic improvement since admission-was given Lasix in the ED. patient also was noted to have left wrist pain-likely ganglion cyst and has a splint in place. Patient workup revealed AE HFrEF, ganglion cyst. Given his symptomatic improvement after getting Lasix and hypotension and imaging we will likely believe it is AE HFrEF. He also needs a medical admission for medical optimization for his HFrEF and possible need for cardioversion while inpatient given his poor compliance. Review of Systems Review of Systems: Yes all other systems are reviewed and are negative [facility] Medical History Leg edema Coronary artery disease Hypertension Social History Household Members: Significant Other and Children Housing: House Patient Tobacco Use Status: Never used Tobacco Smoked in Last 30 Days: No Use of substances other than those prescribed or required for medical reasons: No Substance Use Type: Marijuana Advance Directives: No Advance Directives Information Provided: Yes Meds Allergies Allergy/AdvReac Type Severity Reaction Status Date / Time No Known Allergies Allergy Verified 03/05/25 12:21 Physical Exam Vital Signs and Narrative: Vital Signs: Last Vital Signs Temp 98.3 F 03/05/25 13:12 Pulse 72 03/05/25 13:12 Resp 22 H 03/05/25 13:12 BP 175/103 H 03/05/25 13:12 Pulse Ox 97 03/05/25 13:12 O2 Del Method Room Air 03/05/25 13:12 BMI result Body Mass Index 34.6 General: AOx3, not in any acute distress Resp: CTA bilaterally CVS: S1, S2, RRR GI: +BS, NT, no distention Skin: 1+ pitting pedal edema up to the shins Neuro: Motor grossly intact bilaterally Results Labs 03/05/25 13:06 03/05/25 13:06 Labs: Laboratory Results - last 24 hr 03/05/25 13:06 MCV 81.1 MCH 27.2 MCHC 33.6 RDW 13.9 Plt Count 241 MPV 9.7 Immature Gran % (Auto) 0.5 H Neut % (Auto) 62.6 Lymph % (Auto) 19.8 L [place] % (Auto) 11.2 H Eos % (Auto) 5.1 H Baso % (Auto) 0.8 Lymph # (Auto) 1.3 [place] # (Auto) 0.7 Eos # (Auto) 0.3 Baso # (Auto) 0.1 Abs Immat Gran (auto) 0.03 Absolute Neuts (auto) 4.1 Absolute Nucleated RBC 0.000 Nucleated RBC % (auto) 0.0 Anion Gap 10 L Estim Creat Clear Calc 107.8 Estimated GFR > 60 Random Glucose 100 Calcium 9.1 D Total Bilirubin 0.4 AST 24 ALT 25 Alkaline Phosphatase 75 Troponin I High Sens 26.9 D NT-Pro-B Natriuret Pep 2490.1 H Total Protein 6.9 Albumin 4.2 Lipase 34 Imaging Radiologist's Impressions: Impressions Chest X-Ray 03/05/25 13:50 IMPRESSION: Concerning mild interstitial lung edema versus acute small airway inflammatory processes. Electronically signed by: Sanjay Ramirez MD 03/05/2025 02:07 PM EDT Wrist X-Ray 03/05/25 13:50 IMPRESSION: Normal left wrist. Electronically signed by: Jose Rojas MD 03/05/2025 02:07 PM EDT Assessment and Plan (1) Heart failure, systolic, with acute decompensation: Status: Acute 49-year-old male with PMH notable for CAD, CKD, HFrEF 25%, noncompliance to meds (reports not taking any meds for the past 2 months), revealed AE HFrEF, ganglion cyst. Given his symptomatic improvement after getting Lasix and hypotension and imaging we will likely believe it is AE HFrEF. He also needs a medical admission for medical optimization for his HFrEF and possible need for cardioversion while inpatient given his poor compliance. Weight gain secondary to medication noncompliance We will start him on Lasix drip at 10 Check electrolytes and replete to goal TTE in the a.m. HFrEF 25% We will repeat TTE GDM T with spironolactone, Jardiance, losartan, carvedilol CKD-appears to be at baseline-we will likely get worse given that we have started diuresis Ganglion cyst -symptomatic treatment with splint DVT prophylaxis with Lovenox Patient needs admission for initiation of Lasix drip, diuresis and TTE and medication optimization. This note is constructed using voice recognition software. While every effort has been made to ensure accuracy, quantitative research analyst errors may have been included. Quality Stroke Does the patient have a stroke diagnosis?: No VTE Prior VTE?: No VTE Risk Level:: Medical - moderate - high VTE Device Contraindication: N/A - Device Ordered VTE Drug Contraindication: N/A - Med Ordered
[2025-03-05] MEDS: Furosemide 100 MG/10 ML VIAL 80 MG IVPUSH (14:47)
--- NOTE | 2025-03-05 15:31 | PHA.MEDREC ---
Pharmacy Consult ? Medication Reconciliation Pharmacy has completed the medication reconciliation.Spoke to patient via sanitation truck cleaner. Patient not a good historian and is not confident on the names of his medications. I listed medications that have been filled recently and he agreed he should be on those. I questioned Entresto, and jardiance, he is unsure and there is no pharmacy fill history.
[2025-03-05] MEDS: Furosemide 200 MG in 0.9 % Sodium Chloride 80 ML IVCONT (19:32)
--- NOTE | 2025-03-05 19:54 | PC.NURSE ---
assumed acre of pt at 1930, medicated pt per JUL. pt spouse at bedside, pt repeat EKG done and sent to hospitalist. Pt eating. reports 5/10 pain.
--- NOTE | 2025-03-05 19:56 | PC.NURSE ---
this RN pulled 20 mL of Furosemide from [facility], before administration of medication charge account clerk brought me the mixed furosemide from pharmacy. This RN wasted the 20 mL of furosemide pulled and hung the mixed pharmacy solution.
--- NOTE | 2025-03-05 20:37 | PC.NURSE ---
pharmacy correspondence: Carvedilol due at 2100 not in [facility], pharmacy advised.
[2025-03-05 20:41] LABS: NT Pro B Type Natriuretic Pept 2704.7 pg/mL (<300)
--- NOTE | 2025-03-05 21:41 | PC.NURSE ---
pt medicated per MAR, pt ambulated to bathroom with steady gate.
[2025-03-06] VITALS (11 sets, daily range): BP systolic 130–166; BP diastolic 60–92; PULSE 60–81; RESP 14–20; TEMP 36.2–36.7; O2SAT 97–100; BMI 33.5; BMI 34.7
--- NOTE | 2025-03-06 05:00 | ECG_ITS ---
Test Reason : REPEAT CHEST PAIN Blood Pressure : */* mmHG Vent. Rate : 66 BPM Atrial Rate : 66 BPM P-R Int : 186 ms QRS Dur : 112 ms QT Int : 472 ms P-R-T Axes : 37 7 99 degrees QTcB Int : 494 ms Normal sinus rhythm Left ventricular hypertrophy with repolarization abnormality ( Sokolow-Vazquez , [place] product , Romhilt-Jones ) Prolonged QT Abnormal ECG When compared with ECG of 05-Mar-2025 12:27, No significant change was found Referred By: Jennifer Stallworth Electronically Signed By: LEWIS TURNER MD
[2025-03-06 05:06] LABS: MANUAL DIFF FLAG NO
[2025-03-06 05:10] LABS: Hematocrit 45.4 % (42.0-52.0); Hemoglobin 15.7 g/dl (14.0-18.0); Imm Gran Abs Auto 0.02 X10*3/uL (0.00-0.03); Imm Gran Pct Auto 0.3 % (0.0-0.4); Lymphocytes Absolute Auto 1.5 X10*3/uL (1.2-4.9); Mean Corpuscular HGB Conc 34.6 g/dl (31.0-36.0); Mean Corpuscular Hemoglobin 27.6 pg (27.0-33.0); Mean Corpuscular Volume 79.8 fL (80.0-98.0); NRBC Abs Auto 0.000 X10*3/uL (0.0-0.012); NRBC Pct Auto 0.0 /100WBC (0.0-0.2); Platelet Count 273 X10*3/uL (160-400); Red Blood Count 5.69 X10*6/uL (4.60-5.80); White Blood Count 7.5 X10*3/uL (4.8-10.8)
[2025-03-06 05:45] LABS: Alanine Aminotransferase 26 U/L (0-40); Albumin Level 4.7 g/dL (3.5-5.0); Alkaline Phosphatase 78 U/L (39-117); Anion Gap 12 (12-20); Aspartate Amino Transferase 28 U/L (5-37); Blood Urea Nitrogen 20 mg/dL (9-16); Calcium 9.8 mg/dL (8.4-10.2); Carbon Dioxide 32 mmol/L (22-29); Chloride 101 mmol/L (96-108); Creatinine Clr Calc Pharmacy 82.6; Estimated Glomerular Filt Rate 54; Magnesium 2.1 mg/dL (1.6-2.6); Potassium 3.4 mmol/L (3.3-5.1); Sodium 142 mmol/L (135-145); Total Protein 7.7 g/dL (6.5-8.0)
[2025-03-06 05:47] LABS: Thyroid Stimulating Hormone 3.58 uIU/mL (0.32-4.0)
--- NOTE | 2025-03-06 08:53 | PC.NURSE ---
pt is alert and oriented, skin appropriate for ethnicity, respirations even unlabored, ls clear, pt is reporting left sided chest pain that is constant, very slight peding edema in the lower extremities maybe like +0.5, vs stable and ns on the monitor
--- NOTE | 2025-03-06 09:37 | PM.CNCAR ---
History of Present Illness History of Present Illness Date of Service: 03/06/25 Requesting physician: Shila Villavicencio Consult reason: congestive heart failure Chief complaint: AE HFREF Narrative: I was consulted to see Slava in cardiology consultation today for decompensated congestive heart failure. Patient is a 49-year-old male who I recently saw in the hospital last spring with decompensated congestive heart failure with markedly reduced LV ejection fraction with moderately dilated LV and severely reduced LV ejection fraction 25-30%. Patient that time was then treated and subsequently diuresed and started on guideline based medical therapy. Subsequently was seen in the office in September after his discharge and was still taking his medications at that time was scheduled for cardiac catheterization due to his prior history of reported coronary artery disease with multiple stents. Patient however cancel his cardiac catheterization that was scheduled in October and had no follow-up since then. He said then he ran out of medication call or office after a month of running out of medications. He was then given refill but ran out of his medication again 2 weeks ago. He has not had any office visits meanwhile for unclear reasons. He said he is not taking in his medications for about 2 weeks. History was obtained with help of brewmaster. Patient came to the hospital with progressive shortness of breath and weight gain. Has gained about 30 lb as per him. Patient was noted to be in decompensated congestive heart failure with predominantly right heart failure features with BNP in the 2700 range. Chest x-ray consistent with congestive heart failure. Patient has been restarted on his medications including carvedilol which is not been taking for 2 weeks. He is also on Lasix drip at 10 mg an hour. Started on losartan 25 mg daily for unclear reason as well as restarted on spironolactone and Jardiance. Patient says shortness of breath is better he has been peeing. Take and output chart unfortunately he has not been chart it. Creatinine has jumped up to 1.4. No significant arrhythmias overnight. Noted isolated PVCs. Blood pressure still remains significantly elevated. Review of Systems Constitutional: Constitutional: Reports weight gain Eyes: Eyes: Reports no additional eye complaints Cardiovascular: Cardiovascular: Denies chest pain, Denies rapid heart rate, Reports leg edema, Denies palpitations and Reports dyspnea Respiratory: Respiratory: Reports no additional respiratory complaints and Reports dyspnea Gastrointestinal: Gastrointestinal: Reports no additional gastrointestinal complaints Genitourinary: Genitourinary: Reports no additional male genitourinary complaints Musculoskeletal: Musculoskeletal: Reports no additional musculoskeletal complaints Integumentary/Breasts: Skin/Breast: Reports system reviewed and no additional complaints, except as docu Endocrine: Endocrine: Denies palpitations [facility] Past Medical History Medical History Leg edema Coronary artery disease Hypertension Social History Social History Household Members: Significant Other and Children Housing: House Patient Tobacco Use Status: Never used Tobacco Smoked in Last 30 Days: No Use of substances other than those prescribed or required for medical reasons: No Substance Use Type: Marijuana Advance Directives: No Advance Directives Information Provided: Yes Nutrition Risks: No Nutritional Risk Meds Allergies Allergy/AdvReac Type Severity Reaction Status Date / Time No Known Allergies Allergy Verified 03/05/25 12:21 Active Medications: Current Medications Acetaminophen (Acetaminophen 325 Mg Tablet) 650 mg PO Q6H PRN PRN Reason: Pain, Mild 1-3,fever,headache Calcium Carbonate (Calcium Carbonate 750 Mg Tab.Chew) 750 mg PO Q4H PRN PRN Reason: Heartburn Carvedilol (Carvedilol 6.25 Mg Tablet) 6.25 mg PO BID [facility]; Protocol Last Admin: 03/06/25 08:48 Dose: 6.25 mg Docusate Sodium (Docusate Sodium 100 Mg Capsule) 100 mg PO BID [facility] Last Admin: 03/06/25 08:40 Dose: 100 mg Empagliflozin (Empagliflozin 25 Mg Tablet) 25 mg PO DAILY ESTEFANIA Last Admin: 03/06/25 08:39 Dose: 25 mg Enoxaparin Sodium (Enoxaparin Sodium 40 Mg/0.4 Ml Syringe) 40 mg SUBCUT Q24H ESTEFAN[facility] Last Admin: 03/05/25 19:31 Dose: 40 mg Hydroxyzine HCl (Hydroxyzine Hcl 25 Mg Tablet) 25 mg PO TID PRN PRN Reason: anxiety Furosemide 200 mg/ Sodium (Chloride) 100 mls @ 5 mls/hr IVCONT .Q20H [facility] Last Admin: 03/05/25 19:32 Dose: 10 mg/hr, 5 mls/hr Losartan Potassium (Losartan Potassium 25 Mg Tablet) 25 mg PO DAILY [facility]; Protocol Last Admin: 03/06/25 08:39 Dose: 25 mg Magnesium Hydroxide (Milk Of Magnesia 30 Ml Oral.Susp) 30 ml PO DAILY PRN PRN Reason: Constipation Melatonin (Melatonin 3 Mg Tablet) 6 mg PO BEDTIME PRN PRN Reason: Insomnia Nitroglycerin (Nitroglycerin 0.4 Mg Tab.Subl) 0.4 mg SUBLINGUAL Q5MX3 PRN PRN Reason: Chest Pain Polyethylene Glycol (Polyethylene Glycol 3350 17 Gm Powd.Pack) 17 gm PO DAILY PRN PRN Reason: Constipation Senna (Sennosides 8.6 Mg Tablet) 17.2 mg PO BEDTIME [facility] Last Admin: 03/05/25 21:23 Dose: 17.2 mg Sodium Chloride (0.9 % Sodium Chloride Flush 3 Ml Syringe) 3 ml IVFLUSH QSHIFT [facility] Last Admin: 03/06/25 08:52 Dose: Not Given Spironolactone (Spironolactone 25 Mg Tablet) 25 mg PO DAILY [facility]; Protocol Last Admin: 03/06/25 08:39 Dose: 25 mg Physical Exam Vital Signs: Vital Signs: Last Vital Signs Temp 98.1 F 03/06/25 08:36 Pulse 75 03/06/25 08:36 Resp 18 03/06/25 08:36 BP 155/92 H 03/06/25 08:36 Pulse Ox 97 03/06/25 08:36 O2 Del Method Room Air 03/06/25 08:36 BMI result Body Mass Index 33.5 Const: General: cooperative, comfortable, no acute distress, well developed, alert and awake Nutritional Appearance: well nourished Orientation/consciousness: patient oriented x3 HEENT: Head: Yes normocephalic and Yes atraumatic Neck: Neck: Yes trachea midline, Yes supple and Yes JVD Resp: Effort & Inspection: normal respiratory effort Auscultation: crackles Cardio: Jugular venous distension: JVD Palpation: abnormal PMI displaced PMI GI: Auscultation: normal bowel sounds Skin: General skin exam: no rashes or lesions noted Neuro: General: patient oriented x3 and no focal motor deficits Extrem: General: No clubbing, No cyanosis and Yes edema Objective Labs and Meds 03/06/25 04:58 03/06/25 04:58 Lab results: Laboratory Results - last 24 hr 03/05/25 03/05/25 03/06/25 13:06 20:08 04:58 WBC 6.6 7.5 RBC 5.07 5.69 Hgb 13.8 L 15.7 Hct 41.1 L 45.4 MCV 81.1 79.8 L MCH 27.2 27.6 MCHC 33.6 34.6 RDW 13.9 13.9 Plt Count 241 273 MPV 9.7 9.7 Immature Gran % (Auto) 0.5 H 0.3 Neut % (Auto) 62.6 64.1 Lymph % (Auto) 19.8 L 19.3 L [place] % (Auto) 11.2 H 10.6 Eos % (Auto) 5.1 H 4.8 H Baso % (Auto) 0.8 0.9 Lymph # (Auto) 1.3 1.5 [place] # (Auto) 0.7 0.8 Eos # (Auto) 0.3 0.4 Baso # (Auto) 0.1 0.1 Abs Immat Gran (auto) 0.03 0.02 Absolute Neuts (auto) 4.1 4.8 Absolute Nucleated RBC 0.000 0.000 Nucleated RBC % (auto) 0.0 0.0 Sodium 141 142 Potassium 4.0 3.4 Chloride 106 101 Carbon Dioxide 29 32 H Anion Gap 10 L 12 BUN 18 H 20 H Creatinine 1.08 1.41 H Estim Creat Clear Calc 107.8 82.6 Estimated GFR > 60 54 Random Glucose 100 100 Calcium 9.1 D 9.8 D Magnesium 2.1 Total Bilirubin 0.4 0.6 AST 24 28 ALT 25 26 Alkaline Phosphatase 75 78 Troponin I High Sens 26.9 D NT-Pro-B Natriuret Pep 2490.1 H 2704.7 H Total Protein 6.9 7.7 Albumin 4.2 4.7 Lipase 34 TSH 3.58 Imaging Radiologist's impression: Impressions Chest X-Ray 03/05/25 13:50 IMPRESSION: Concerning mild interstitial lung edema versus acute small airway inflammatory processes. Electronically signed by: Sanjay Ramirez MD 03/05/2025 02:07 PM EDT Wrist X-Ray 03/05/25 13:50 IMPRESSION: Normal left wrist. Electronically signed by: Jose Rojas MD 03/05/2025 02:07 PM EDT RP Assessment and Plan (1) Heart failure, systolic, with acute decompensation: Status: Acute Acute decompensated congestive heart failure in this middle-aged man with severely reduced LV ejection fraction question ischemic cardiomyopathy unclear at this point time. Although he is noncompliance with medication for unclear reasons. Discussed with the help of brewmaster that this is going to lead to poor outcomes including early . This is clearly discussed with the patient and patient's over the phone. He has been restarted on carvedilol therapy unfortunately with a acute decompensation. Will need to watch him closely. He needs IV diuresis although I would cut down his Lasix to 5 mg an hour given his jump in his creatinine. Switch losartan to Entresto therapy. Start on 24-26 mg b.i.d.. Jardiance should be 10 mg. He has no history of diabetes to my knowledge. Continue spironolactone therapy. Strict intake and output chart needs to be pursued. Continue monitor renal function as well as electrolytes. Does not need a repeat echocardiogram as we already know his LV ejection fraction is markedly reduced. Will follow with you Procedures Date of Service Date of Service: 03/06/25
--- NOTE | 2025-03-06 10:24 | MHC.CM.PN ---
CM met with Patient at bedside, in the ED. Patient lives in an apartment with his and he is functionally independent. Home self care is the goal and CM has in initiated and will follow for dc planning. Patient has no PCP(Brochure to be provided) and no insurance(referral made via email to [facility] [employer]).Patient may require assist with transport at time of dc.
[2025-03-06] MEDS: Furosemide 200 MG in 0.9 % Sodium Chloride 80 ML IVCONT (12:18)
--- NOTE | 2025-03-06 14:09 | HO.PM.IMPN ---
Subjective Subjective Date of Service: 03/06/25 Review of Systems Follow up CHF no sob Physical Exam Exam: Exam: Appearing in no acute distress lung sounds are clear to auscultation heart regular rate rhythm, clear S1, S2 positive bowel sounds, abdomen is soft, nontender neuro patient is alert x3, no focal deficits Vital Signs: Vital Signs: Last Vital Signs Temp 97.9 F 03/06/25 12:15 Pulse 60 03/06/25 12:15 Resp 16 03/06/25 12:15 BP 148/87 H 03/06/25 12:15 Pulse Ox 97 03/06/25 12:15 O2 Del Method Room Air 03/06/25 10:41 BMI result Body Mass Index 33.5 Objective Data Active Medications Acetaminophen (Acetaminophen 325 Mg Tablet) 650 mg PO Q6H PRN PRN Reason: Pain, Mild 1-3,fever,headache Calcium Carbonate (Calcium Carbonate 750 Mg Tab.Chew) 750 mg PO Q4H PRN PRN Reason: Heartburn Carvedilol (Carvedilol 6.25 Mg Tablet) 6.25 mg PO BID [facility]; Protocol Last Admin: 03/06/25 08:48 Dose: 6.25 mg Documented By: MONY Docusate Sodium (Docusate Sodium 100 Mg Capsule) 100 mg PO BID [facility] Last Admin: 03/06/25 08:40 Dose: 100 mg Documented By: MONY Empagliflozin (Empagliflozin 10 Mg Tablet) 10 mg PO DAILY [facility] Last Admin: 03/06/25 11:50 Dose: Not Given Documented By: MONY Non-Admin Reason: got 25mg earlier Enoxaparin Sodium (Enoxaparin Sodium 40 Mg/0.4 Ml Syringe) 40 mg SUBCUT Q24H [facility] Last Admin: 03/05/25 19:31 Dose: 40 mg Documented By: MIKY Hydroxyzine HCl (Hydroxyzine Hcl 25 Mg Tablet) 25 mg PO TID PRN PRN Reason: anxiety Furosemide 200 mg/ Sodium (Chloride) 100 mls @ 2.5 mls/hr IVCONT .Q24H [facility] Last Admin: 03/06/25 12:18 Dose: 5 mg/hr, 2.5 mls/hr Documented By: MARILU Magnesium Hydroxide (Milk Of Magnesia 30 Ml Oral.Susp) 30 ml PO DAILY PRN PRN Reason: Constipation Melatonin (Melatonin 3 Mg Tablet) 6 mg PO BEDTIME PRN PRN Reason: Insomnia Nitroglycerin (Nitroglycerin 0.4 Mg Tab.Subl) 0.4 mg SUBLINGUAL Q5MX3 PRN PRN Reason: Chest Pain Polyethylene Glycol (Polyethylene Glycol 3350 17 Gm Powd.Pack) 17 gm PO DAILY PRN PRN Reason: Constipation Senna (Sennosides 8.6 Mg Tablet) 17.2 mg PO BEDTIME [facility] Last Admin: 03/05/25 21:23 Dose: 17.2 mg Documented By: MIKY Sodium Chloride (0.9 % Sodium Chloride Flush 3 Ml Syringe) 3 ml IVFLUSH QSHIFT [facility] Last Admin: 03/06/25 08:52 Dose: Not Given Documented By: MONY Non-Admin Reason: IV Running Spironolactone (Spironolactone 25 Mg Tablet) 25 mg PO DAILY ESTEFANIA; Protocol Last Admin: 03/06/25 08:39 Dose: 25 mg Documented By: MONY Labs 03/06/25 04:58 03/06/25 04:58 Labs: Laboratory Results - last 24 hr 03/05/25 03/06/25 20:08 04:58 MCV 79.8 L MCH 27.6 MCHC 34.6 RDW 13.9 Plt Count 273 MPV 9.7 Immature Gran % (Auto) 0.3 Neut % (Auto) 64.1 Lymph % (Auto) 19.3 L [place] % (Auto) 10.6 Eos % (Auto) 4.8 H Baso % (Auto) 0.9 Lymph # (Auto) 1.5 [place] # (Auto) 0.8 Eos # (Auto) 0.4 Baso # (Auto) 0.1 Abs Immat Gran (auto) 0.02 Absolute Neuts (auto) 4.8 Absolute Nucleated RBC 0.000 Nucleated RBC % (auto) 0.0 Anion Gap 12 Estim Creat Clear Calc 82.6 Estimated GFR 54 Random Glucose 100 Calcium 9.8 D Magnesium 2.1 Total Bilirubin 0.6 AST 28 ALT 26 Alkaline Phosphatase 78 NT-Pro-B Natriuret Pep 2704.7 H Total Protein 7.7 Albumin 4.7 TSH 3.58 Assessment and Plan (1) Congestive heart failure: Status: Acute Plan 49-year-old male with PMH notable for CAD, CKD, HFrEF 25%, noncompliance to meds (reports not taking any meds for the past 2 months), revealed, HFrEF, ganglion cyst. Given his symptomatic improvement after getting Lasix and hypotension and imaging we will likely believe it is AE HFrEF. He also needs a medical admission for medical optimization for his HFrEF and possible need for cardioversion while inpatient given his poor compliance. HFrEF Weight gain secondary to medication noncompliance BNP 2704 IV Lasix drip at decreased to 5 mg/hr losartan switched to Entresto, jardiance decreased to 10mg, continue spironolactone no need for echo as per cardiology last ef with echo of 25% daily weights strict intake and output JAMIE on CKD3 likely from diuresis lasix decreased to 5 mg/hr Ganglion cyst symptomatic treatment with splint DVT prophylaxis with Lovenox full code Patient needs admission for initiation of Lasix drip, diuresis and TTE and medication optimization. Quality Stroke Does the patient have a stroke diagnosis?: No VTE Prior VTE?: No VTE Risk Level:: Medical - moderate - high VTE Device Contraindication: N/A - Device Ordered VTE Drug Contraindication: N/A - Med Ordered
--- NOTE | 2025-03-06 14:28 | PC.NURSE ---
Pt placed in hospital bed.
--- NOTE | 2025-03-06 15:56 | HO.NURTONUR ---
49 yo M presented to ED yesterday with CP x2 days and SOB Alert and oriented. Denies CP/SOB at this time. VSS. On Lasix drip at 5mg. PIV to right AC. OOB ad gordy, voiding into urinal for I/O's Noncompliant with medications for 2 months. English speaking, minimal Irish.
[2025-03-07 02:57] VITALS: BP 117/56; PULSE 53; RESP 18; TEMP 36.5; O2SAT 99
[2025-03-07 07:14] VITALS: BP 154/77; PULSE 63; RESP 16; TEMP 36.2; O2SAT 99
[2025-03-07 07:20] LABS: MANUAL DIFF FLAG NO
[2025-03-07 07:22] LABS: Hematocrit 46.6 % (42.0-52.0); Hemoglobin 16.3 g/dl (14.0-18.0); Imm Gran Abs Auto 0.03 X10*3/uL (0.00-0.03); Imm Gran Pct Auto 0.4 % (0.0-0.4); Lymphocytes Absolute Auto 1.4 X10*3/uL (1.2-4.9); Mean Corpuscular HGB Conc 35.0 g/dl (31.0-36.0); Mean Corpuscular Hemoglobin 27.5 pg (27.0-33.0); Mean Corpuscular Volume 78.6 fL (80.0-98.0); NRBC Abs Auto 0.000 X10*3/uL (0.0-0.012); NRBC Pct Auto 0.0 /100WBC (0.0-0.2); Platelet Count 281 X10*3/uL (160-400); Red Blood Count 5.93 X10*6/uL (4.60-5.80); White Blood Count 7.2 X10*3/uL (4.8-10.8)
[2025-03-07 07:37] LABS: Alanine Aminotransferase 20 U/L (0-40); Albumin Level 4.3 g/dL (3.5-5.0); Alkaline Phosphatase 78 U/L (39-117); Anion Gap 13 (12-20); Aspartate Amino Transferase 20 U/L (5-37); Blood Urea Nitrogen 28 mg/dL (9-16); Calcium 9.6 mg/dL (8.4-10.2); Carbon Dioxide 31 mmol/L (22-29); Chloride 101 mmol/L (96-108); Creatinine Clr Calc Pharmacy 72.8; Estimated Glomerular Filt Rate 47; Magnesium 2.2 mg/dL (1.6-2.6); Potassium 3.2 mmol/L (3.3-5.1); Sodium 142 mmol/L (135-145); Total Protein 7.3 g/dL (6.5-8.0)
[2025-03-07 09:09] VITALS: BMI 32.9
[2025-03-07] MEDS: Sacubitril/Valsartan 24/26 1 TAB TABLET PO ×2 (09:12→19:55)
[2025-03-07] MEDS: Potassium Chloride ER 20 MEQ TAB.ER.PRT 40 MEQ PO ×2 (09:12→19:54)
--- NOTE | 2025-03-07 10:53 | P.PNCA_ITS ---
Subjective Subjective Date of Service: 03/07/25 Principal diagnosis: Decompensated heart failure, cardiomyopathy Interval history: Patient has been diuresing. He says breathing better. Leg edema has improved although creatinine is rising. He has been all his medications as prescribed right on admission. Blood pressure is still elevated. Review of Systems Constitutional: Reports no additional constitutional complaints Cardiovascular: Reports leg edema and Reports dyspnea Respiratory: Reports no additional respiratory complaints and Reports dyspnea Gastrointestinal: Reports no additional gastrointestinal complaints Physical Exam Vital Signs: Last Vital Signs Temp 97.2 F 03/07/25 07:14 Pulse 63 03/07/25 07:14 Resp 16 03/07/25 07:14 BP 154/77 H 03/07/25 07:14 Pulse Ox 99 03/07/25 07:14 O2 Del Method Room Air 03/07/25 07:14 BMI result Body Mass Index 32.9 Const General: cooperative, comfortable, no acute distress, well developed, alert and awake Nutritional Appearance: well nourished Orientation/consciousness: patient oriented x3 HEENT Head: Yes normocephalic and Yes atraumatic Neck Neck: Yes trachea midline, Yes supple and Yes JVD Resp Effort & Inspection: normal respiratory effort Auscultation: crackles Cardio Jugular venous distension: JVD Palpation: abnormal PMI displaced PMI GI Auscultation: normal bowel sounds Skin General skin exam: no rashes or lesions noted Neuro General: patient oriented x3 and no focal motor deficits Extrem General: No clubbing, No cyanosis and Yes edema Objective Labs and Meds 03/07/25 06:32 03/07/25 06:32 Lab results: Laboratory Results - last 24 hr 03/07/25 06:32 WBC 7.2 RBC 5.93 H Hgb 16.3 Hct 46.6 MCV 78.6 L MCH 27.5 MCHC 35.0 RDW 14.0 Plt Count 281 MPV 9.8 Immature Gran % (Auto) 0.4 Neut % (Auto) 64.9 Lymph % (Auto) 19.4 L [place] % (Auto) 10.8 Eos % (Auto) 3.8 Baso % (Auto) 0.7 Lymph # (Auto) 1.4 [place] # (Auto) 0.8 Eos # (Auto) 0.3 Baso # (Auto) 0.1 Abs Immat Gran (auto) 0.03 Absolute Neuts (auto) 4.7 Absolute Nucleated RBC 0.000 Nucleated RBC % (auto) 0.0 Sodium 142 Potassium 3.2 L Chloride 101 Carbon Dioxide 31 H Anion Gap 13 BUN 28 H Creatinine 1.60 H Estim Creat Clear Calc 72.8 Estimated GFR 47 Random Glucose 106 Calcium 9.6 Magnesium 2.2 Total Bilirubin 0.6 AST 20 ALT 20 Alkaline Phosphatase 78 Total Protein 7.3 Albumin 4.3 Progress Note: A&P Assessment and plan (1) Heart failure, systolic, with acute decompensation: Status: Acute Assessment and Plan: Decompensated congestive heart failure with rising creatinine with more aggressive diuresis as well as reinstatement of his neurohormonal modulation right away in patient with decompensated congestive heart failure. Will hold off on uptitrate any of his medication despite elevated blood pressure. Also his IV Lasix can be stopped and can be switch to Lasix 40 mg IV push starting tomorrow. Continue monitor strict intake and output chart. Continue monitor renal function. Consider Nephrology consultation. Will check BNP and BNP tomorrow. Discussed with the patient the rising creatinine and complications associated with noncompliance with decompensated congestive heart failure. He understands. Will follow with you Time Spent With Patient Time: Total time managing care of this patient today ____ minutes. Progress Note: Quality Stroke Does the patient have a stroke diagnosis?: No Procedures Date of Service Date of Service: 03/07/25
--- NOTE | 2025-03-07 10:53 | P.PNIM_ITS ---
Subjective Subjective Date of Service: 03/07/25 Review of Systems Follow up CHF no sob patient feels like he has less fluid build up Physical Exam 2 Exam: Exam: Appearing in no acute distress lung sounds are clear to auscultation heart regular rate rhythm, clear S1, S2 positive bowel sounds, abdomen is soft, nontender neuro patient is alert x3, no focal deficits Vital Signs: Vital Signs: Last Vital Signs Temp 97.2 F 03/07/25 07:14 Pulse 63 03/07/25 07:14 Resp 16 03/07/25 07:14 BP 154/77 H 03/07/25 07:14 Pulse Ox 99 03/07/25 07:14 O2 Del Method Room Air 03/07/25 07:14 BMI result Body Mass Index 32.9 Objective Data Active Medications Acetaminophen (Acetaminophen 325 Mg Tablet) 650 mg PO Q6H PRN PRN Reason: Pain, Mild 1-3,fever,headache Last Admin: 03/06/25 18:09 Dose: 650 mg Documented By: ISABEL Calcium Carbonate (Calcium Carbonate 750 Mg Tab.Chew) 750 mg PO Q4H PRN PRN Reason: Heartburn Carvedilol (Carvedilol 6.25 Mg Tablet) 6.25 mg PO BID [facility]; Protocol Last Admin: 03/07/25 09:12 Dose: 6.25 mg Documented By: LOUISA Docusate Sodium (Docusate Sodium 100 Mg Capsule) 100 mg PO BID [facility] Last Admin: 03/07/25 09:12 Dose: 100 mg Documented By: LOUISA Empagliflozin (Empagliflozin 10 Mg Tablet) 10 mg PO DAILY [facility] Last Admin: 03/07/25 09:12 Dose: 10 mg Documented By: LOUISA Enoxaparin Sodium (Enoxaparin Sodium 40 Mg/0.4 Ml Syringe) 40 mg SUBCUT Q24H [facility] Last Admin: 03/06/25 20:06 Dose: 40 mg Documented By: SORAIDA Furosemide (Furosemide 40 Mg/4 Ml Vial) 40 mg IVPUSH DAILY [facility]; Protocol Hydroxyzine HCl (Hydroxyzine Hcl 25 Mg Tablet) 25 mg PO TID PRN PRN Reason: anxiety Magnesium Hydroxide (Milk Of Magnesia 30 Ml Oral.Susp) 30 ml PO DAILY PRN PRN Reason: Constipation Melatonin (Melatonin 3 Mg Tablet) 6 mg PO BEDTIME PRN PRN Reason: Insomnia Nitroglycerin (Nitroglycerin 0.4 Mg Tab.Subl) 0.4 mg SUBLINGUAL Q5MX3 PRN PRN Reason: Chest Pain Polyethylene Glycol (Polyethylene Glycol 3350 17 Gm Powd.Pack) 17 gm PO DAILY PRN PRN Reason: Constipation Potassium Chloride (Potassium Chloride Er 20 Meq Tab.Er.Prt) 40 meq PO BID [facility] Last Admin: 03/07/25 09:12 Dose: 40 meq Documented By: LOUISA Sacubitril/Valsartan (Sacubitril/Valsartan 1 Tab Tablet) 1 tab PO BID [facility]; Protocol Last Admin: 03/07/25 09:12 Dose: 1 tab Documented By: LOUISA Senna (Sennosides 8.6 Mg Tablet) 17.2 mg PO BEDTIME ESTEFANIA Last Admin: 03/06/25 20:06 Dose: 17.2 mg Documented By: SORAIDA Sodium Chloride (0.9 % Sodium Chloride Flush 3 Ml Syringe) 3 ml IVFLUSH QSHIFT [facility] Last Admin: 03/07/25 08:56 Dose: Not Given Documented By: LOUISA Non-Admin Reason: IV Running Spironolactone (Spironolactone 25 Mg Tablet) 25 mg PO DAILY [facility]; Protocol On Hold: 03/07/25 08:06 Last Admin: 03/06/25 08:39 Dose: 25 mg Documented By: MONY Labs 03/07/25 06:32 03/07/25 06:32 Labs: Laboratory Results - last 24 hr 03/07/25 06:32 MCV 78.6 L MCH 27.5 MCHC 35.0 RDW 14.0 Plt Count 281 MPV 9.8 Immature Gran % (Auto) 0.4 Neut % (Auto) 64.9 Lymph % (Auto) 19.4 L [place] % (Auto) 10.8 Eos % (Auto) 3.8 Baso % (Auto) 0.7 Lymph # (Auto) 1.4 [place] # (Auto) 0.8 Eos # (Auto) 0.3 Baso # (Auto) 0.1 Abs Immat Gran (auto) 0.03 Absolute Neuts (auto) 4.7 Absolute Nucleated RBC 0.000 Nucleated RBC % (auto) 0.0 Anion Gap 13 Estim Creat Clear Calc 72.8 Estimated GFR 47 Random Glucose 106 Calcium 9.6 Magnesium 2.2 Total Bilirubin 0.6 AST 20 ALT 20 Alkaline Phosphatase 78 Total Protein 7.3 Albumin 4.3 Assessment and Plan (1) Congestive heart failure: Status: Acute Plan 49-year-old male with PMH notable for CAD, CKD, HFrEF 25%, noncompliance to meds (reports not taking any meds for the past 2 months), revealed, HFrEF, ganglion cyst. Given his symptomatic improvement after getting Lasix and hypotension and imaging we will likely believe it is AE HFrEF. He also needs a medical admission for medical optimization for his HFrEF and possible need for cardioversion while inpatient given his poor compliance. HFrEF secondary to medication noncompliance, ran out of medications 2 months ago BNP peaked at 2704 last echo EF 25% losartan switched to Entresto, jardiance decreased to 10mg, continue spironolactone daily weights>weight 106.9kg, down 5.9kg neg 11 liters IV Lasix drip stopped due to worsening renal function, switched to lasix 40 mg daily starting tomorrow JAMIE on CKD3 likely from diuresis creat 1.60 today lasix drip stopped, now on IVP lasix Hypokalemia Likely from diuresis Potassium 40 mg b.i.d. today and recheck BMP tomorrow Ganglion cyst symptomatic treatment with splint DVT prophylaxis with Lovenox full code Patient continues to require IV Lasix although Lasix drip was stopped secondary to acute renal failure. Patient will need to be monitored closely for continued fluid loss and worsening renal function Quality Stroke Does the patient have a stroke diagnosis?: No VTE Prior VTE?: No VTE Risk Level:: Medical - moderate - high VTE Device Contraindication: N/A - Device Ordered VTE Drug Contraindication: N/A - Med Ordered
--- NOTE | 2025-03-07 10:57 | MHC.CM.PN ---
Per ROUNDS discussion, Patient is not yet medically cleared for dc (IV Lasix and rising Creatinine); home self care is the goal and CM will continue to follow.
[2025-03-07 11:26] VITALS: BP 129/88; PULSE 63; RESP 16; TEMP 36.4; O2SAT 98
[2025-03-07 16:00] VITALS: BP 127/83; PULSE 84; RESP 16; TEMP 36.3; O2SAT 96
[2025-03-07 19:24] VITALS: BP 142/73; PULSE 73; RESP 16; TEMP 36.2; O2SAT 96
[2025-03-07] MEDS: 0.9 % Sodium Chloride Flush 3 ML SYRINGE IVFLUSH (19:55)
[2025-03-07 23:29] VITALS: BP 139/82; PULSE 61; RESP 16; TEMP 36.4; O2SAT 99
[2025-03-08 03:34] VITALS: BP 130/70; PULSE 70; RESP 16; TEMP 36.3; O2SAT 100
[2025-03-08 06:50] LABS: MANUAL DIFF FLAG NO
[2025-03-08 06:58] LABS: Hematocrit 46.6 % (42.0-52.0); Hemoglobin 15.9 g/dl (14.0-18.0); Imm Gran Abs Auto 0.03 X10*3/uL (0.00-0.03); Imm Gran Pct Auto 0.4 % (0.0-0.4); Lymphocytes Absolute Auto 1.7 X10*3/uL (1.2-4.9); Mean Corpuscular HGB Conc 34.1 g/dl (31.0-36.0); Mean Corpuscular Hemoglobin 27.4 pg (27.0-33.0); Mean Corpuscular Volume 80.3 fL (80.0-98.0); NRBC Abs Auto 0.000 X10*3/uL (0.0-0.012); NRBC Pct Auto 0.0 /100WBC (0.0-0.2); Platelet Count 171 X10*3/uL (160-400); Red Blood Count 5.80 X10*6/uL (4.60-5.80); White Blood Count 7.3 X10*3/uL (4.8-10.8)
[2025-03-08 07:46] LABS: NT Pro B Type Natriuretic Pept 359.1 pg/mL (<300)
[2025-03-08 07:47] VITALS: BP 147/78; PULSE 61; RESP 20; TEMP 36.1; O2SAT 99
[2025-03-08 07:51] LABS: Alanine Aminotransferase 21 U/L (0-40); Albumin Level 4.0 g/dL (3.5-5.0); Alkaline Phosphatase 78 U/L (39-117); Anion Gap 14 (12-20); Aspartate Amino Transferase 19 U/L (5-37); Blood Urea Nitrogen 31 mg/dL (9-16); Calcium 9.3 mg/dL (8.4-10.2); Carbon Dioxide 27 mmol/L (22-29); Chloride 105 mmol/L (96-108); Creatinine Clr Calc Pharmacy 84.7; Estimated Glomerular Filt Rate 57; Magnesium 2.4 mg/dL (1.6-2.6); Potassium 3.7 mmol/L (3.3-5.1); Sodium 142 mmol/L (135-145); Total Protein 6.9 g/dL (6.5-8.0)
[2025-03-08] MEDS: Sacubitril/Valsartan 24/26 1 TAB TABLET PO (09:07)
[2025-03-08] MEDS: Furosemide 40 MG/4 ML VIAL IVPUSH (09:07)
[2025-03-08] MEDS: 0.9 % Sodium Chloride Flush 3 ML SYRINGE IVFLUSH (09:08)
[2025-03-08] MEDS: Potassium Chloride ER 20 MEQ TAB.ER.PRT 40 MEQ PO (09:08)
--- NOTE | 2025-03-08 09:58 | PM.PNCARD ---
Subjective Subjective Date of Service: 03/08/25 Principal diagnosis: Decompensated heart failure, cardiomyopathy Interval history: Patient's creatinine has come down. Patient is breathing better. Has diuresed adequately. Blood pressure is still elevated but better than before. BNP is significantly improved. Review of Systems Review of Systems Yes all other systems are reviewed and are negative Physical Exam Vital Signs: Last Vital Signs Temp 97.0 F 03/08/25 07:47 Pulse 61 03/08/25 07:47 Resp 20 03/08/25 07:47 BP 147/78 H 03/08/25 07:47 Pulse Ox 99 03/08/25 07:47 O2 Del Method Room Air 03/08/25 07:47 BMI result Body Mass Index 32.9 Const General: cooperative, comfortable, no acute distress, well developed, alert and awake Nutritional Appearance: well nourished Orientation/consciousness: patient oriented x3 HEENT Head: Yes normocephalic and Yes atraumatic Neck Neck: Yes trachea midline, Yes supple and Yes no JVD Resp Effort & Inspection: normal respiratory effort Auscultation: crackles Cardio Jugular venous distension: no JVD Palpation: abnormal PMI displaced PMI GI Auscultation: normal bowel sounds Skin General skin exam: no rashes or lesions noted Neuro General: patient oriented x3 and no focal motor deficits Extrem General: No clubbing, No cyanosis and Yes edema Objective Labs and Meds 03/08/25 06:15 03/08/25 06:15 Lab results: Laboratory Results - last 24 hr 03/08/25 06:15 WBC 7.3 RBC 5.80 Hgb 15.9 Hct 46.6 MCV 80.3 MCH 27.4 MCHC 34.1 RDW 13.9 Plt Count 171 D MPV 10.9 Immature Gran % (Auto) 0.4 Neut % (Auto) 60.1 Lymph % (Auto) 23.4 [place] % (Auto) 11.7 H Eos % (Auto) 3.7 Baso % (Auto) 0.7 Lymph # (Auto) 1.7 [place] # (Auto) 0.9 Eos # (Auto) 0.3 Baso # (Auto) 0.1 Abs Immat Gran (auto) 0.03 Absolute Neuts (auto) 4.4 Absolute Nucleated RBC 0.000 Nucleated RBC % (auto) 0.0 Sodium 142 Potassium 3.7 Chloride 105 Carbon Dioxide 27 Anion Gap 14 BUN 31 H Creatinine 1.34 Estim Creat Clear Calc 84.7 Estimated GFR 57 Random Glucose 105 Calcium 9.3 Magnesium 2.4 Total Bilirubin 0.5 AST 19 ALT 21 Alkaline Phosphatase 78 NT-Pro-B Natriuret Pep 359.1 H Total Protein 6.9 Albumin 4.0 Progress Note: A&P Assessment and plan (1) Heart failure, systolic, with acute decompensation: Status: Acute Assessment and Plan: Acute decompensated congestive heart failure, systolic with severe LV systolic dysfunction with noncompliance to medications and follow-up. Importance of compliance to follow up and medications were discussed. Will set him up for office visit in 7-10 days. Can switch him to oral medications including diuretics and potassium supplementation as he is currently getting in the office. Advised to monitor blood pressure at home maintain a log. Daily weight monitoring avoidance salt loading was discussed additional diuretics as need be. Will need cardiac catheterization as outpatient. Discussed with the patient. He said he will be more compliant with follow-ups. (2) Coronary artery disease: Status: Acute Assessment and Plan: CAD with reported multiple PCIs in [place]. No records of it as yet. Will need cardiac catheterization as outpatient. Continue aspirin as well as high-intensity statin therapy. Follow up in the clinic. Time Spent With Patient Time: Total time managing care of this patient today ____ minutes. Progress Note: Quality Stroke Does the patient have a stroke diagnosis?: No Procedures Date of Service Date of Service: 03/08/25
--- NOTE | 2025-03-08 10:54 | PM.DS ---
DS: Providers Provider Date of Service: 03/08/25 Date of admission: 03/05/25 18:45 Date of discharge: 03/08/25 Primary care physician: None Physician Consults: 03/06/25 07:59 Consult to Cardiology Routine Consulting Provider: [facility] Reason for consultation: CHF Attending physician on discharge: Danny Clark Discharging clinician: Felecia Jacobs DS: Diagnosis Discharge Diagnosis (1) Heart failure, systolic, with acute decompensation: Status: Acute (2) Coronary artery disease: Status: Acute DS: Summary Hospital Course Hospital Course: From H&P at the time of admission Patient is a pleasant 49-year-old male with PMH notable for CAD, CKD, HFrEF, noncompliance to meds (reports not taking any meds for the past 2 months), who was apparently scheduled to see his social security benefits interviewer for cardioversion outpatient but given some prior commitments he could not do. Hence he has been without meds for awhile. And he reports gaining nearly 30 lb of weight. He reports substernal chest pain , similar to prior, reports symptomatic improvement since admission-was given Lasix in the ED. patient also was noted to have left wrist pain-likely ganglion cyst and has a splint in place. Patient workup revealed AE HFrEF, ganglion cyst. Given his symptomatic improvement after getting Lasix and hypotension and imaging we will likely believe it is AE HFrEF. He also needs a medical admission for medical optimization for his HFrEF and possible need for cardioversion while inpatient given his poor compliance. HFrEF secondary to medication noncompliance, ran out of medications 2 months ago. BNP peaked at 2704. losartan switched to Entresto, jardiance decreased to 10mg, continued on spironolactone. treated with IV lasix. daily weights, diuresed well and symptoms gradually improved. BNP trending down, Not requiring supplemental oxygen and now medically acceptable for discharge home. Seen by cardiology and will be discharged with all current medications. will need further outpatient follow-up in the cardiology office and ischemic workup. JAMIE on CKD3 likely from diuresis, peaked at 1.6, trended down to 1.34. Hypokalemia. Likely from diuresis, improved with replacement. Time Attestation Discharge Coordination Time (in mins): 40 Quality: Safe Use of Opioids Does Pt have an Active Cancer Diagnosis on the Problem List?: No Quality: Stroke Does the patient have a stroke diagnosis?: No Physical Exam Vital Signs: Vital Signs: Last Vital Signs Temp 97.0 F 03/08/25 07:47 Pulse 61 03/08/25 07:47 Resp 20 03/08/25 07:47 BP 147/78 H 03/08/25 07:47 Pulse Ox 99 03/08/25 07:47 O2 Del Method Room Air 03/08/25 07:47 BMI result Body Mass Index 32.9 Const: General: cooperative, comfortable, alert and awake Nutritional Appearance: average body habitus Orientation/consciousness: patient oriented x3 Resp: Effort & Inspection: normal respiratory effort, able to speak in complete sentences, no respiratory distress and no use of accessory muscles Cardio: Rate: regular rate GI: Palpation (GI): Soft to palpation Neuro: General: patient oriented x3 DS: Data Data Completed and Pending Labs on day of discharge: Laboratory Results - last 24 hr 03/08/25 06:15 WBC 7.3 RBC 5.80 Hgb 15.9 Hct 46.6 MCV 80.3 MCH 27.4 MCHC 34.1 RDW 13.9 Plt Count 171 D MPV 10.9 Immature Gran % (Auto) 0.4 Neut % (Auto) 60.1 Lymph % (Auto) 23.4 [place] % (Auto) 11.7 H Eos % (Auto) 3.7 Baso % (Auto) 0.7 Lymph # (Auto) 1.7 [place] # (Auto) 0.9 Eos # (Auto) 0.3 Baso # (Auto) 0.1 Abs Immat Gran (auto) 0.03 Absolute Neuts (auto) 4.4 Absolute Nucleated RBC 0.000 Nucleated RBC % (auto) 0.0 Sodium 142 Potassium 3.7 Chloride 105 Carbon Dioxide 27 Anion Gap 14 BUN 31 H Creatinine 1.34 Estim Creat Clear Calc 84.7 Estimated GFR 57 Random Glucose 105 Calcium 9.3 Magnesium 2.4 Total Bilirubin 0.5 AST 19 ALT 21 Alkaline Phosphatase 78 NT-Pro-B Natriuret Pep 359.1 H Total Protein 6.9 Albumin 4.0 Discharge Plan Discharge Anticipated Discharge Date/Time: 03/08/25 11:23 Patient Disposition: Home, Self-Care Discharge Diagnosis: HFrEF JAMIE and CKD 3 Hypokalemia Referrals: Physician,None [Primary Care Provider, Medical] - 1 Week Nas Calderon MD [Physician, Cardiology] - 1 Week Discharge Medications: New sacubitril-valsartan [Entresto] 24-26 mg Tablet 1 tab PO BID 90 Days Qty: 180 0RF Protocol: Hold for SBP< HOLD for SBP < : 90 potassium chloride 20 mEq Tablet,Er Particles/Crystals 40 meq PO DAILY 30 Days Qty: 60 0RF Jardiance 10 mg Tablet 10 mg PO DAILY 90 Days Qty: 90 0RF aspirin 81 mg tablet 81 mg PO DAILY 90 Days Qty: 90 0RF atorvastatin [Lipitor] 40 mg tablet 40 mg PO BEDTIME 90 Days Qty: 90 0RF Continued hydroxyzine HCl 25 mg tablet 25 mg PO TID PRN (Reason: anxiety) Qty: 30 2RF furosemide [Lasix] 40 mg tablet 40 mg PO DAILY Qty: 90 0RF carvedilol 6.25 mg tablet 6.25 mg PO BID 90 Days Qty: 180 1RF Rx Instructions: must administer with a meal/food Dose increased spironolactone 25 mg tablet 25 mg PO DAILY Qty: 90 0RF Protocol: Hold for SBP< HOLD for SBP < : 90 Discharge Orders: Discharge Order (Routine); Ordered 03/08/25 Ordered By: Felecia Jacobs Activity on Discharge: As tolerated Stand Alone Forms: Patient Portal Discharge page Print Language: Russian Care Plan Goals: See below Health Concerns: Decompensated heart failure JAMIE on CKD Low potassium levels Plan of Treatment: Take all medications for her as prescribed Call to schedule follow-up appointment in the Cardiology Clinic in the next 7-10 days You will need further outpatient cardiology workup Recommend low-sodium diet. Weigh yourself daily and keep track of your weight Assessment: See discharge summary
--- NOTE | 2025-03-08 12:01 | MHC.CM.PN ---
Patient has been medically cleared for dc to home today, self care.
== END 2025-03-08 12:36 | disposition home or self-care (01) | DRG 194 ==
LOC: HO.ED 14:40 → HO.EDOVER 18:54 → HO.IMC 03-06 15:53
PROVIDERS: Nurse Practitioner Acute Care; Physician Assistant; Admitting Provider Student in an Organized Health Care Education/Training Program; Emergency Provider Emergency Medicine; Visit Provider Physician Assistant Medical
DX: I13.0 Hypertensive heart and chronic kidney disease with heart failure and stage 1 through stage 4 chronic kidney disease, or unspecified chronic kidney disease (principal); N17.9 Acute kidney failure, unspecified; N18.30 Chronic kidney disease, stage 3 unspecified; I50.23 Acute on chronic systolic (congestive) heart failure; E87.6 Hypokalemia; I25.10 Atherosclerotic heart disease of native coronary artery without angina pectoris; M67.432 Ganglion, left wrist; Z91.148 Patient's other noncompliance with medication regimen for other reason; Z79.899 Other long term (current) drug therapy
CPT/HCPCS: 36415; 71045; 73110; 80053; 83690; 83735; 83880; 84443; 84484; 85025; 93005; 97161; 97165; 99285; J1650; J1938

== ENCOUNTER → 2025-03-05 12:07 | Outpatient (BNV) | payer OTHER, SELFPAY | PROVIDERS: Emergency Provider Emergency Medicine; Visit Provider Internal Medicine Cardiovascular Disease | DX: I51.7 Cardiomegaly (principal) | CPT/HCPCS: 93010 ==

== ENCOUNTER → 2025-03-05 12:51 | Outpatient (BNV) | payer OTHER, SELFPAY | PROVIDERS: Emergency Provider Emergency Medicine; Visit Provider Radiology Diagnostic Radiology | DX: R07.9 Chest pain, unspecified (principal); R06.00 Dyspnea, unspecified; M25.532 Pain in left wrist; M25.432 Effusion, left wrist | CPT/HCPCS: 71045; 73110 ==

== ENCOUNTER 2025-03-05 18:45 | Outpatient (BNV) | payer MEDICAID, SELFPAY | END 2025-03-06 05:00 | PROVIDERS: Admitting Provider Student in an Organized Health Care Education/Training Program; Emergency Provider Emergency Medicine; Visit Provider Internal Medicine Cardiovascular Disease | DX: I51.7 Cardiomegaly (principal) | CPT/HCPCS: 93010 ==

== ENCOUNTER → 2025-03-05 18:45 | Outpatient (BNV) | payer MEDICAID, SELFPAY | PROVIDERS: Admitting Provider Student in an Organized Health Care Education/Training Program; Emergency Provider Emergency Medicine; Visit Provider Internal Medicine Cardiovascular Disease | DX: I50.23 Acute on chronic systolic (congestive) heart failure (principal) | CPT/HCPCS: 99222; 99233 ==

== ENCOUNTER → 2025-03-05 18:45 | Outpatient (BNV) | payer OTHER, SELFPAY | PROVIDERS: Admitting Provider Student in an Organized Health Care Education/Training Program; Emergency Provider Emergency Medicine; Visit Provider Student in an Organized Health Care Education/Training Program | DX: I50.23 Acute on chronic systolic (congestive) heart failure (principal) | CPT/HCPCS: 99222; 99232 ==